=== PATIENT | female | born 1970 | race Caucasian/White ===

== ENCOUNTER → 2018-10-17 | Outpatient (CLI) | payer MEDICAID ==
[2018-10-17 11:42] LABS: Anisocytosis Slight; Basophils # (A) 0.1 k/uL (0-0.2); Basophils % (A) 1 %; Eosinophils # (A) 0.2 k/uL (0-0.7); Eosinophils % (A) 2 %; HCT 34.9 % (34.0-46.0); HGB 10.4 gm/dL (11.4-16.0); Hypochromasia Marked; Lymphocytes # (A) 1.7 k/uL (1.0-4.8); Lymphocytes % (A) 19 %; MCHC 29.8 g/dL (31.0-37.0); MCV 70.5 fL (80.0-100.0); Mean Platelet Volume 7.8; Microcytosis Marked; Monocytes # (A) 0.4 k/uL (0-1.0); Monocytes % (A) 4 %; Neutrophils # (A) 6.2 k/uL (1.3-7.7); Neutrophils % (A) 72 %; Platelet Count 369 k/uL (150-450); RBC 4.96 m/uL (3.80-5.40); RDW 17.2 % (11.5-15.5); WBC 8.7 k/uL (3.8-10.6)
--- NOTE | 2018-10-17 11:43 | XR ---
Right hip HISTORY: Right hip pain, trauma 3 days prior 2 views of the right hip Mild osteoarthritic changes present, there is joint space loss and mild marginal spurring. Alignment and bone mineralization are maintained. IMPRESSION: No fracture or dislocation.
[2018-10-17 13:25] LABS: ALT 24 U/L (9-52); AST 20 U/L (14-36); Albumin 4.1 g/dL (3.5-5.0); Alkaline Phosphatase 85 U/L (38-126); Anion Gap 7 mmol/L; Blood Urea Nitrogen 12 mg/dL (7-17); Calcium 9.8 mg/dL (8.4-10.2); Carbon Dioxide 30 mmol/L (22-30); Chloride 104 mmol/L (98-107); Cholesterol 115 mg/dL (<200); Glucose 95 mg/dL (74-99); HDL Cholesterol 44 mg/dL (40-60); LDL Cholesterol,Calculated 52 mg/dL (0-99); Magnesium 2.1 mg/dL (1.6-2.3); Potassium 4.1 mmol/L (3.5-5.1); Sodium 141 mmol/L (137-145); Total Bilirubin 0.4 mg/dL (0.2-1.3); Triglycerides 97 mg/dL (<150)
[2018-10-17 16:36] LABS: Vitamin D 25 Hydroxy 22.6 ng/mL (30.0-100.0)
[2018-10-17 17:00] LABS: Folate, Serum >24.0 ng/mL
[2018-10-18 13:57] LABS: Vitamin C 12 mg/L (2-19)
[2018-10-19 08:02] LABS: Vit B1(Thiamine) 59 ug/L (38-122)
== END | disposition home or self-care (01) ==
LOC: RADXRMAIN 10:40
PROVIDERS: ATTEND Family Medicine
DX: M25.551 Pain in right hip (principal); E66.8 Other obesity; K90.9 Intestinal malabsorption, unspecified; E03.8 Other specified hypothyroidism
CPT/HCPCS: 36415; 73502; 80053; 80061; 82180; 82306; 82607; 82728; 82746; 83735; 84425; 84439; 84443; 84446; 84590; 85025

== ENCOUNTER 2018-11-21 06:51 | Day surgery (SDC) | payer MEDICAID ==
[2018-11-16 10:13] VITALS: BMI 42.0
[~2018-11-21 06:51] MED LIST: LACTATED RINGERS 1,000 ML IV SCH; LIDOCAINE 1% 20 ML VIAL (10MG/ML) FOR IV START INTRADERMA PRN
[2018-11-21 07:17] VITALS: TEMP 98.3
[2018-11-21] MEDS ORDERED: PROPOFOL 10 MG/ML 20 ML VIAL IV ONE (07:31)
--- NOTE | 2018-11-21 07:40 | P.GSHP ---
History of Present Illness H&P Date: 11/21/18 CHIEF COMPLAINT: Colon screen HISTORY OF PRESENT ILLNESS: The patient is a 47-year-old female who presents for colon screen. Lower endoscopy was offered for further evaluation and management. PAST MEDICAL HISTORY: Please see list. PAST SURGICAL HISTORY: Please see list. MEDICATIONS: Please see list. ALLERGIES: Please see list. SOCIAL HISTORY: No illicit drug use FAMILY HISTORY: No reports of Crohn disease or ulcerative colitis. REVIEW OF ORGAN SYSTEMS: CONSTITUTIONAL: No reports of fevers or chills. PHYSICAL EXAM: VITAL SIGNS: Stable GENERAL: Well-developed pleasant in no acute distress. HEENT: No scleral icterus. Extraocular movements grossly intact. Moist buccal mucosa. NECK: Supple without lymphadenopathy. CHEST: Unlabored respirations. Equal bilateral excursions. CARDIOVASCULAR: Regular rate and rhythm. Distal 2+ pulses. ABDOMEN: Soft, nontender, nondistended. MUSCULOSKELETAL: No clubbing, cyanosis, or edema. ASSESSMENT: 1. Colon screen. PLAN: 1. Recommend proceeding with a lower endoscopy Past Medical History Past Medical History: Sleep Apnea/CPAP/BIPAP, Thyroid Disorder Additional Past Medical History / Comment(s): used to use CPAP-not needed since lost >100#, anemia History of Any Multi-Drug Resistant Organisms: None Reported Past Surgical History: Adenoidectomy, Bariatric Surgery, Cholecystectomy, Tonsillectomy Additional Past Surgical History / Comment(s): rouxen y gastric bypass, D & C's Past Anesthesia/Blood Transfusion Reactions: No Reported Reaction Smoking Status: Never smoker - Past Family History Father Family Medical History: Cancer Brother(s) Family Medical History: Cancer Additional Family Medical History / Comment(s): colorectal Medications and Allergies Home Medications Medication Instructions Recorded Confirmed Type Ferrous Sulfate [Feosol] 325 mg PO DAILY 11/16/18 11/21/18 History Levothyroxine Sodium [Synthroid] 50 mcg PO DAILY 11/16/18 11/21/18 History Medroxyprogesterone Acetate 5 mg PO Q90D 11/16/18 11/21/18 History [Provera] Multivitamins, Thera [Multivitamin 1 tab PO DAILY 11/16/18 11/21/18 History (formulary)] Allergies Allergy/AdvReac Type Severity Reaction Status Date / Time No Known Allergies Allergy Verified 11/21/18 07:10 Surgical - Exam Vital Signs Temp Pulse Resp BP Pulse Ox 98.3 F 68 17 143/75 98 11/21/18 07:14 11/21/18 07:14 11/21/18 07:14 11/21/18 07:14 11/21/18 07:14
--- NOTE | 2018-11-21 07:55 | P.PCN ---
Date of Procedure: 11/21/18 Description of Procedure: PREOPERATIVE DIAGNOSIS: Anemia Family history colon cancer Colonoscopy screening, initial POSTOPERATIVE DIAGNOSIS: Anemia Family history colon cancer Colonoscopy screening, initial Diverticulosis, scattered. Colitis with recent bleed at cecum OPERATION: Colonoscopy to the ileocecal valve and appendiceal orifice. Colonoscopy with cold forceps biopsy cecum SURGEON: Cheryl Wu MD. ANESTHESIA: MAC. INDICATIONS: The patient is a 47-year-old female who presents for colonoscopy screening. She has family history of colon cancer in her brother diagnosed at age 42. Separately she presents with anemia. Benefits and risks were described and informed consent was obtained. DESCRIPTION OF PROCEDURE: The patient had undergone Gatorade, MiraLAX and Dulcolax prep. She had been brought into the operating room and laid in the left lateral decubitus position. After adequate intravenous sedation, the rectum was examined with 2% lidocaine jelly. No external hemorrhoids were encountered. The rectal tone was within normal limits. No lesions were palpated in the rectal vault. An Olympus colonoscope was advanced until the ileocecal valve and appendiceal orifice were clearly viewed. The prep was fair. The scope was removed with visualization of each mucosal fold. Scattered diverticulosis was encountered. No colonic polyps were found. Focal colitis with recent bleed of the cecum was identified with cold biopsy forceps obtained. Retroflexion of the scope demonstrated grade 1 internal hemorrhoids without active bleeding or inflammation. The colon was desufflated. The patient had tolerated the procedure well. Withdrawal time was over 6 minutes. FINDINGS: Aronchick preparation quality scale 2 (1-5) Internal hemorrhoids, grade 1 No external prolapsed hemorrhoids. No arteriovenous malformations. No adenomatous polyps. Scattered diverticulosis was encountered. Focal colitis with recent bleed of the cecum was identified with cold biopsy forceps obtained. RECOMMENDATIONS: Lower endoscopy in 5 years, 2023 for high risk family history Plan - Discharge Summary Discharge Rx Participant: Yes New Discharge Prescriptions: No Action Multivitamins, Thera [Multivitamin (formulary)] 1 tab PO DAILY Levothyroxine Sodium [Synthroid] 50 mcg PO DAILY Ferrous Sulfate [Feosol] 325 mg PO DAILY Medroxyprogesterone Acetate [Provera] 5 mg PO Q90D Discharge Medication List Ferrous Sulfate [Feosol] 325 mg PO DAILY 11/16/18 [History] Levothyroxine Sodium [Synthroid] 50 mcg PO DAILY 11/16/18 [History] Medroxyprogesterone Acetate [Provera] 5 mg PO Q90D 11/16/18 [History] Multivitamins, Thera [Multivitamin (formulary)] 1 tab PO DAILY 11/16/18 [History] Follow up Appointment(s)/Referral(s): Cheryl Wu MD [STAFF PHYSICIAN] - 11/27/18 Patient Instructions/Handouts: Ulcerative Colitis (DC), Diverticulosis Diet (GEN), Diverticulosis (DC) Activity/Diet/Wound Care/Special Instructions: Repeat colonoscopy in 5 years, 2023 Discharge Disposition: HOME SELF-CARE
[2018-11-21 08:16] VITALS: BP 122/79; PULSE 70; RESP 18
== END 2018-11-21 08:37 | disposition home or self-care (01) ==
LOC: ORWHC2ENDO 06:51
PROVIDERS: ATTEND Surgery Plastic and Reconstructive Surgery
DX: K52.9 Noninfective gastroenteritis and colitis, unspecified (principal); K92.2 Gastrointestinal hemorrhage, unspecified; K57.30 Diverticulosis of large intestine without perforation or abscess without bleeding; K64.0 First degree hemorrhoids; Z80.0 Family history of malignant neoplasm of digestive organs; E07.9 Disorder of thyroid, unspecified; G47.30 Sleep apnea, unspecified; Z98.84 Bariatric surgery status; Z79.890 Hormone replacement therapy; Z79.3 Long term (current) use of hormonal contraceptives
CPT/HCPCS: 81025; 88305; 45380; J2704

== ENCOUNTER 2018-11-22 10:23 | Emergency (ER) | payer MEDICAID ==
[2018-11-22 10:33] VITALS: RESP 18; TEMP 99.3
[2018-11-22] MEDS ORDERED: SODIUM CHLORIDE 0.9% 1,000 ML IV ONE (10:54)
[2018-11-22] MEDS ORDERED: MORPHINE SULFATE 4 MG/ML SYRINGE IVP STA (10:54)
[2018-11-22] MEDS ORDERED: SODIUM CHLORIDE 0.9% 1,000 ML IV SCH (11:00)
--- NOTE | 2018-11-22 11:00 | ED ---
Abdominal Pain HPI - General Chief Complaint: Abdominal Pain Stated Complaint: abdominal & right side pain/nausea Time Seen by Provider: 11/22/18 10:36 Source: patient, RN notes reviewed, old records reviewed Mode of arrival: ambulatory Limitations: no limitations - History of Present Illness Initial Comments: Patient is a 47-year-old female presents emergency department today for evaluation with complaints of right-sided abdominal pain. Patient reports symptoms started approximately 8 hours after having colonoscopy. Patient reports she had a colonoscopy performed yesterday morning at 7:30 AM. Patient has called her doctor told her to come in for evaluation. She was here yesterday afternoon but left due to the long wait time. Patient reports that she has pain reading from the right upper quadrant around to her back. Previous surgical history includes gastric bypass and cholecystectomy. She reports she was passing gas after the procedure. She reports she's had some nausea but no specific vomiting. - Related Data Home Medications Medication Instructions Recorded Confirmed Ferrous Sulfate [Feosol] 325 mg PO DAILY 11/16/18 11/21/18 Levothyroxine Sodium [Synthroid] 50 mcg PO DAILY 11/16/18 11/21/18 Medroxyprogesterone Acetate 5 mg PO Q90D 11/16/18 11/21/18 [Provera] Multivitamins, Thera [Multivitamin 1 tab PO DAILY 11/16/18 11/21/18 (formulary)] Previous Rx's Medication Instructions Recorded Cephalexin [Keflex] 500 mg PO Q8HR #21 cap 11/22/18 HYDROcodone/APAP 5-325MG [[place] 1 tab PO Q6HR PRN #10 tab 11/22/18 5-325] Ondansetron Odt [Zofran Odt] 4 mg PO Q8HR PRN #12 tab 11/22/18 Tamsulosin [Flomax] 0.4 mg PO DAILY #7 cap 11/22/18 Allergies Allergy/AdvReac Type Severity Reaction Status Date / Time No Known Allergies Allergy Verified 11/21/18 18:41 Review of Systems ROS Statement: Those systems with pertinent positive or pertinent negative responses have been documented in the HPI. ROS Other: All systems not noted in ROS Statement are negative. Past Medical History Past Medical History: Sleep Apnea/CPAP/BIPAP, Thyroid Disorder Additional Past Medical History / Comment(s): used to use CPAP-not needed since lost >100#, anemia History of Any Multi-Drug Resistant Organisms: None Reported Past Surgical History: Adenoidectomy, Bariatric Surgery, Cholecystectomy, Tonsillectomy Additional Past Surgical History / Comment(s): rouxen y gastric bypass, D & C's, Colonoscopy Past Anesthesia/Blood Transfusion Reactions: No Reported Reaction Smoking Status: Never smoker Past Alcohol Use History: None Reported Past Drug Use History: None Reported - Past Family History Father Family Medical History: Cancer Brother(s) Family Medical History: Cancer Additional Family Medical History / Comment(s): colorectal General Exam - General Exam Comments Initial Comments: 47-year-old female. Alert and oriented. No significant distress. Limitations: no limitations General appearance: alert, in no apparent distress Head exam: Present: atraumatic, normocephalic, normal inspection Eye exam: Present: normal appearance, PERRL, EOMI. Absent: scleral icterus, conjunctival injection, periorbital swelling ENT exam: Present: normal exam, mucous membranes moist Neck exam: Present: normal inspection. Absent: tenderness, meningismus, lymphadenopathy Respiratory exam: Present: normal lung sounds bilaterally. Absent: respiratory distress, wheezes, rales, rhonchi, stridor Cardiovascular Exam: Present: regular rate, normal rhythm, normal heart sounds. Absent: systolic murmur, diastolic murmur, rubs, gallop, clicks GI/Abdominal exam: Present: soft, tenderness (Minimal right upper quadrant tenderness. No guarding.), normal bowel sounds. Absent: distended, guarding, rebound, rigid Extremities exam: Present: normal inspection, full ROM, normal capillary refill. Absent: tenderness, pedal edema, joint swelling, calf tenderness Back exam: Present: normal inspection Neurological exam: Present: alert, oriented X3, CN II-XII intact Psychiatric exam: Present: normal affect, normal mood Skin exam: Present: warm, dry, intact, normal color. Absent: rash Course Vital Signs 11/22/18 10:28 Temperature 99.3 F Pulse Rate 70 Respiratory 18 Rate Blood Pressure 147/72 O2 Sat by Pulse 100 Oximetry Medical Decision Making - Medical Decision Making Patient's a 47-year-old female presents weren't symptoms today for evaluation for complaints of right-sided flank pain. Patient thought that some symptoms started after having a colonoscopy yesterday. It is totally soft, some minimal right upper quadrant tenderness. She his right back pain. Blood work was reviewed. Urinalysis shows mild white blood cells,hematuria. Due to increased cough. His computed tomography scan. Patient is a 6 mm distal ureteral stone. No hydronephrosis noted. I discussed Patient should likely pass this, given referral for urology. She did have some minimal white blood cells in her urine, get Patient is given Rocephin and will discharge Patient with prescription for Keflex. Discharged with Toradol full next and pain medicine. All questions answered. - Lab Data Result diagrams: 11/22/18 11:05 11/22/18 11:05 Lab Results 11/22/18 11/22/18 11/22/18 Range/Units 11:05 11:05 11:05 WBC 12.2 H (3.8-10.6) k/uL RBC 5.32 (3.80-5.40) m/uL Hgb 10.9 L (11.4-16.0) gm/dL Hct 37.6 (34.0-46.0) % MCV 70.7 L (80.0-100.0) fL MCH 20.6 L (25.0-35.0) pg MCHC 29.1 L (31.0-37.0) g/dL RDW 16.9 H (11.5-15.5) % Plt Count 374 (150-450) k/uL Neutrophils % 80 % Lymphocytes % 13 % Monocytes % 5 % Eosinophils % 1 % Basophils % 1 % Neutrophils # 9.8 H (1.3-7.7) k/uL Lymphocytes # 1.6 (1.0-4.8) k/uL Monocytes # 0.6 (0-1.0) k/uL Eosinophils # 0.1 (0-0.7) k/uL Basophils # 0.1 (0-0.2) k/uL Hypochromasia Marked Anisocytosis Slight Microcytosis Moderate PT 10.1 (9.0-12.0) sec INR 0.9 (<1.2) APTT 23.8 (22.0-30.0) sec Sodium 142 (137-145) mmol/L Potassium 3.8 (3.5-5.1) mmol/L Chloride 104 (98-107) mmol/L Carbon Dioxide 29 (22-30) mmol/L Anion Gap 9 mmol/L BUN 10 (7-17) mg/dL Creatinine 0.98 (0.52-1.04) mg/dL Est GFR (CKD-EPI)AfAm 81 (>60 ml/min/1.73 sqM) Est GFR (CKD-EPI)NonAf 70 (>60 ml/min/1.73 sqM) Glucose 104 H (74-99) mg/dL Calcium 9.6 (8.4-10.2) mg/dL Total Bilirubin 0.5 (0.2-1.3) mg/dL AST 28 (14-36) U/L ALT 26 (9-52) U/L Alkaline Phosphatase 81 (38-126) U/L Total Protein 7.2 (6.3-8.2) g/dL Albumin 4.4 (3.5-5.0) g/dL Amylase 52 (30-110) U/L Lipase 96 (23-300) U/L Urine Color Urine Appearance (Clear) Urine pH (5.0-8.0) Ur Specific [place] (1.001-1.035) Urine Protein (Negative) Urine Glucose (UA) (Negative) Urine Ketones (Negative) Urine Blood (Negative) Urine Nitrite (Negative) Urine Bilirubin (Negative) Urine Urobilinogen (<2.0) mg/dL Ur Leukocyte Esterase (Negative) Urine RBC (0-5) /hpf Urine WBC (0-5) /hpf Ur Squamous Epith Cells (0-4) /hpf Urine Mucus (None) /hpf 11/22/18 Range/Units 11:05 WBC (3.8-10.6) k/uL RBC (3.80-5.40) m/uL Hgb (11.4-16.0) gm/dL Hct (34.0-46.0) % MCV (80.0-100.0) fL MCH (25.0-35.0) pg MCHC (31.0-37.0) g/dL RDW (11.5-15.5) % Plt Count (150-450) k/uL Neutrophils % % Lymphocytes % % Monocytes % % Eosinophils % % Basophils % % Neutrophils # (1.3-7.7) k/uL Lymphocytes # (1.0-4.8) k/uL Monocytes # (0-1.0) k/uL Eosinophils # (0-0.7) k/uL Basophils # (0-0.2) k/uL Hypochromasia Anisocytosis Microcytosis PT (9.0-12.0) sec INR (<1.2) APTT (22.0-30.0) sec Sodium (137-145) mmol/L Potassium (3.5-5.1) mmol/L Chloride (98-107) mmol/L Carbon Dioxide (22-30) mmol/L Anion Gap mmol/L BUN (7-17) mg/dL Creatinine (0.52-1.04) mg/dL Est GFR (CKD-EPI)AfAm (>60 ml/min/1.73 sqM) Est GFR (CKD-EPI)NonAf (>60 ml/min/1.73 sqM) Glucose (74-99) mg/dL Calcium (8.4-10.2) mg/dL Total Bilirubin (0.2-1.3) mg/dL AST (14-36) U/L ALT (9-52) U/L Alkaline Phosphatase (38-126) U/L Total Protein (6.3-8.2) g/dL Albumin (3.5-5.0) g/dL Amylase (30-110) U/L Lipase (23-300) U/L Urine Color Yellow Urine Appearance Clear (Clear) Urine pH 5.5 (5.0-8.0) Ur Specific [place] 1.033 (1.001-1.035) Urine Protein Trace H (Negative) Urine Glucose (UA) Negative (Negative) Urine Ketones Negative (Negative) Urine Blood Negative (Negative) Urine Nitrite Negative (Negative) Urine Bilirubin Negative (Negative) Urine Urobilinogen <2.0 (<2.0) mg/dL Ur Leukocyte Esterase Trace H (Negative) Urine RBC 3 (0-5) /hpf Urine WBC 8 H (0-5) /hpf Ur Squamous Epith Cells 1 (0-4) /hpf Urine Mucus Occasional H (None) /hpf Disposition Clinical Impression: Ureteral stone Disposition: HOME SELF-CARE Condition: Good Instructions (If sedation given, give patient instructions): Ureteral Stones (ED) Additional Instructions: Patient has follow-up with urology. Take medications as prescribed. Patient and advised to take Motrin and Tylenol as well as the prescribed pain medicine. Return to the emergency department if any alarming signs or symptoms occur. Prescriptions: Tamsulosin [Flomax] 0.4 mg PO DAILY #7 cap Cephalexin [Keflex] 500 mg PO Q8HR #21 cap HYDROcodone/APAP 5-325MG [[place] 5-325] 1 tab PO Q6HR PRN #10 tab PRN Reason: Pain Ondansetron Odt [Zofran Odt] 4 mg PO Q8HR PRN #12 tab PRN Reason: Nausea Is patient prescribed a controlled substance at d/c from ED?: Yes If prescribed controlled substance>3 days was MAPS reviewed?: Prescribed <3 Days If opioid is for acute pain is fill amount 7 days or less?: Yes If Rx opioid, was Start Talking consent form obtained?: Yes Referrals: Gio Cox DO [Primary Care Provider] - 1-2 days Esvin Bright MD [STAFF PHYSICIAN] - 1-2 days Time of Disposition: 13:46
[2018-11-22 11:26] LABS: Anisocytosis Slight; Appearance,Urine Clear (Clear); Basophils # (A) 0.1 k/uL (0-0.2); Basophils % (A) 1 %; Bilirubin,Urine Negative (Negative); Blood,Urine Negative (Negative); Color,Urine Yellow; Eosinophils # (A) 0.1 k/uL (0-0.7); Eosinophils % (A) 1 %; Glucose,Urine (UA) Negative (Negative); HCT 37.6 % (34.0-46.0); HGB 10.9 gm/dL (11.4-16.0); Hypochromasia Marked; Ketones,Urine Negative (Negative); Leukocyte Esterase,Urine Trace (Negative); Lymphocytes # (A) 1.6 k/uL (1.0-4.8); Lymphocytes % (A) 13 %; MCH 20.6 pg (25.0-35.0); MCHC 29.1 g/dL (31.0-37.0); MCV 70.7 fL (80.0-100.0); Mean Platelet Volume 7.8; Microcytosis Moderate; Monocytes # (A) 0.6 k/uL (0-1.0); Monocytes % (A) 5 %; Mucus,Urine Occasional /hpf; Neutrophils # (A) 9.8 k/uL (1.3-7.7); Neutrophils % (A) 80 %; Nitrite,Urine Negative (Negative); PH, Urine 5.5 (5.0-8.0); Platelet Count 374 k/uL (150-450); Protein,Urine Trace (Negative); RBC 5.32 m/uL (3.80-5.40); RBC,Urine 3 /hpf (0-5); RDW 16.9 % (11.5-15.5); Specific Gravity,Urine 1.033 (1.001-1.035); Squamous Epithelial Cell,Urine 1 /hpf (0-4); Urobilinogen,Urine <2.0 mg/dL (<2.0); WBC 12.2 k/uL (3.8-10.6); WBC,Urine 8 /hpf (0-5)
[2018-11-22 11:32] LABS: INR 0.9 (<1.2); Prothrombin Time 10.1 sec (9.0-12.0)
[2018-11-22 11:33] LABS: Partial Thromboplastin Time 23.8 sec (22.0-30.0)
[2018-11-22 11:42] LABS: Albumin 4.4 g/dL (3.5-5.0); Calcium 9.6 mg/dL (8.4-10.2); Potassium 3.8 mmol/L (3.5-5.1); Total Bilirubin 0.5 mg/dL (0.2-1.3); Total Protein 7.2 g/dL (6.3-8.2)
--- NOTE | 2018-11-22 12:46 | CT ---
EXAMINATION TYPE: CT abdomen pelvis w con DATE OF EXAM: 11/22/2018 COMPARISON: None INDICATION: Right sided abdominal pain today after colonoscopy yesterday. DLP: 1342.9 mGycm, Automated exposure control for dose reduction was used. CONTRAST: 100 mL of Isovue 300. Study performed without Oral Contrast TECHNIQUE: Axial images were obtained from above the diaphragm to the pubic rami in the axial plane a t 5 mm thick sections. Reconstructed images are reviewed on the computer in the coronal plane. FINDINGS: Limited CT sections are obtained the lung bases. The lung bases are clear. CT ABDOMEN: Liver: Normal Spleen: Normal Pancreas: Normal Adrenal glands: The adrenal glands are normal. Gallbladder: Normal Kidneys: No masses are evident. Moderate right hydronephrosis present. Mild right hydroureter is pres ent. There is a calcification within the pelvic inlet measuring 0.6 cm. No renal cysts are present. Delayed images were obtained through the kidneys, which remain unremarkable. Aorta: Vascular calcification is within the aorta. Inferior vena cava: Normal. CT PELVIS: Loops of bowel within the abdomen and pelvis are normal. Study is performed without oral contrast limiting bowel evaluation. Appendix: Normal as visualized. Urinary bladder: Normal. Genitourinary structures: Uterus is normal. Adnexal regions are clear. Osseous structures: No suspicious lytic or sclerotic lesions. IMPRESSIONS: 1. 0.6 cm right pelvic ureter calcification with moderate right hydronephrosis and mild right hydrou reter.
[2018-11-22] MEDS ORDERED: HYDROcodone/APAP 10-325MG 1 EACH TAB PO ONE (13:26)
[2018-11-22 14:21] VITALS: BP 147/79; PULSE 71
== END 2018-11-22 14:36 | disposition home or self-care (01) ==
LOC: EC 10:23
DX: N20.1 Calculus of ureter (principal); E07.9 Disorder of thyroid, unspecified; Z79.890 Hormone replacement therapy; Z79.899 Other long term (current) drug therapy; Z90.49 Acquired absence of other specified parts of digestive tract
CPT/HCPCS: 36415; 80053; 82150; 83690; 85025; 85610; 85730; 81001; 87086; 74177; 99285; 96365; 96375; 96361; J2270; J0696; Q9967

== ENCOUNTER 2018-11-25 04:42 | Observation (INO) | payer MEDICAID ==
[2018-11-25] MEDS ORDERED: ONDANSETRON 4 MG/2 ML VIAL IVP STA (05:08)
[2018-11-25] MEDS ORDERED: HYDROmorphone 0.5 MG/0.5 ML SYRINGE IVP STA (05:08)
[2018-11-25] MEDS ORDERED: KETOROLAC 30 MG/ML 1 ML VIAL IVP STA (05:17)
[2018-11-25 05:38] LABS: African American GFR (CKD) >90 (>60 ml/min/1.73 sqM); Anion Gap 10 mmol/L; Blood Urea Nitrogen 11 mg/dL (7-17); Calcium 9.5 mg/dL (8.4-10.2); Carbon Dioxide 25 mmol/L (22-30); Chloride 105 mmol/L (98-107); Glucose 107 mg/dL (74-99); Potassium 3.8 mmol/L (3.5-5.1); Sodium 140 mmol/L (137-145)
--- NOTE | 2018-11-25 05:51 | XR ---
EXAM: XR Abdomen, 1 View CLINICAL HISTORY: Right-sided flank pain TECHNIQUE: Frontal supine view of the abdomen/pelvis. COMPARISON: CT 11/22/2018 FINDINGS: Gastrointestinal tract: Unremarkable. No dilation. Organs: Cholecystectomy clips are noted in the right upper quadrant. Bones/joints: The calcification noted in the distal right ureter by CT examination is presumed overlying the mid right iliac wing, similar to previous CT exam. IMPRESSION: The calcification noted in the distal right ureter by CT examination is presumed overlying the mid right iliac wing, similar to previous CT exam.
[2018-11-25 06:01] LABS: Anisocytosis Slight; Basophils # (A) 0.1 k/uL (0-0.2); Basophils % (A) 1 %; Eosinophils # (A) 0.1 k/uL (0-0.7); Eosinophils % (A) 1 %; HCT 34.8 % (34.0-46.0); HGB 10.1 gm/dL (11.4-16.0); Hypochromasia Marked; Lymphocytes # (A) 1.9 k/uL (1.0-4.8); Lymphocytes % (A) 17 %; MCH 20.6 pg (25.0-35.0); MCHC 28.9 g/dL (31.0-37.0); MCV 71.1 fL (80.0-100.0); Mean Platelet Volume 7.2; Microcytosis Moderate; Monocytes # (A) 0.5 k/uL (0-1.0); Monocytes % (A) 5 %; Neutrophils # (A) 8.5 k/uL (1.3-7.7); Neutrophils % (A) 75 %; Platelet Count 343 k/uL (150-450); RDW 17.1 % (11.5-15.5); WBC 11.3 k/uL (3.8-10.6)
[2018-11-25] MEDS ORDERED: NALOXONE 0.4 MG/ML 1 ML VIAL IV PRN (06:59)
[2018-11-25] MEDS ORDERED: ONDANSETRON 4 MG/2 ML VIAL IVP PRN (06:59)
[2018-11-25] MEDS ORDERED: HYDROcodone/APAP 5-325MG 1 EACH TAB PO PRN (07:04)
--- NOTE | 2018-11-25 07:08 | ED ---
Abdominal Pain HPI - General Chief Complaint: Abdominal Pain Stated Complaint: Revisit Kidney Stone Time Seen by Provider: 11/25/18 04:58 Source: patient Mode of arrival: wheelchair Limitations: no limitations - History of Present Illness Initial Comments: This patient is a 47-year-old woman who presents with complaint of intractable right flank pain. She states that she started having flank pain late on the . She was seen here, she was diagnosed with ureterolithiasis on 11/22. This was confirmed by CT. The patient states that she was discharged with prescription for antibiotics, Flomax, and [place]. She states that she is taking any other medicines but could not tolerate the [place] because it upset her stomach. She then followed up with Dr. Vandana mar on Monday. She states that the pain about 5 out of 10. He told her to continue taking the medications and to return to emergency room pain was worse. She states that tonight the pain became more severe and is a 10 out of 10. He is also having some nausea and vomiting. MD Complaint: flank pain Onset/Timin -: days(s) Location: R flank Radiation: RLQ Migration to: no migration Severity: severe Quality: sharp Consistency: colicky Improves With: nothing Worsens With: nothing Associated Symptoms: nausea, vomiting - Related Data Home Medications Medication Instructions Recorded Confirmed Ferrous Sulfate [Feosol] 325 mg PO DAILY 11/16/18 11/21/18 Levothyroxine Sodium [Synthroid] 50 mcg PO DAILY 11/16/18 11/21/18 Medroxyprogesterone Acetate 5 mg PO Q90D 11/16/18 11/21/18 [Provera] Multivitamins, Thera [Multivitamin 1 tab PO DAILY 11/16/18 11/21/18 (formulary)] Previous Rx's Medication Instructions Recorded Cephalexin [Keflex] 500 mg PO Q8HR #21 cap 11/22/18 Tamsulosin [Flomax] 0.4 mg PO DAILY #7 cap 11/22/18 Allergies Allergy/AdvReac Type Severity Reaction Status Date / Time No Known Allergies Allergy Verified 11/25/18 07:18 Review of Systems ROS Statement: Those systems with pertinent positive or pertinent negative responses have been documented in the HPI. ROS Other: All systems not noted in ROS Statement are negative. Constitutional: Denies: fever, chills Respiratory: Denies: cough, dyspnea Cardiovascular: Denies: chest pain, palpitations, edema, syncope Gastrointestinal: Reports: abdominal pain, nausea, vomiting. Denies: diarrhea, constipation, melena, hematochezia Genitourinary: Denies: dysuria, frequency, hematuria Musculoskeletal: Denies: back pain Skin: Denies: rash Neurological: Denies: headache, weakness, numbness Past Medical History Past Medical History: Sleep Apnea/CPAP/BIPAP, Thyroid Disorder Additional Past Medical History / Comment(s): used to use CPAP-not needed since lost >100#, anemia, kidney stones, History of Any Multi-Drug Resistant Organisms: None Reported Past Surgical History: Adenoidectomy, Bariatric Surgery, Cholecystectomy, Tonsillectomy Additional Past Surgical History / Comment(s): rouxen y gastric bypass, D & C's, Colonoscopy, Past Anesthesia/Blood Transfusion Reactions: No Reported Reaction Smoking Status: Never smoker Past Alcohol Use History: None Reported Past Drug Use History: None Reported - Past Family History Father Family Medical History: Cancer Brother(s) Family Medical History: Cancer Additional Family Medical History / Comment(s): colorectal General Exam Limitations: no limitations General appearance: alert, in no apparent distress Head exam: Present: atraumatic, normocephalic Eye exam: Present: normal appearance. Absent: scleral icterus, conjunctival injection ENT exam: Present: normal oropharynx Neck exam: Present: normal inspection Respiratory exam: Present: normal lung sounds bilaterally. Absent: respiratory distress, wheezes, rales, rhonchi, stridor Cardiovascular Exam: Present: regular rate, normal rhythm, normal heart sounds. Absent: systolic murmur, diastolic murmur, rubs, gallop GI/Abdominal exam: Present: soft. Absent: distended, tenderness, guarding, rebound, rigid Extremities exam: Present: normal inspection, normal capillary refill. Absent: pedal edema, calf tenderness Back exam: Present: normal inspection, CVA tenderness (R). Absent: CVA tenderness (L) Neurological exam: Present: alert Skin exam: Present: warm, dry, intact, normal color. Absent: rash Course Vital Signs 11/25/18 11/25/18 04:50 06:26 Temperature 97.5 F L Pulse Rate 68 68 Respiratory 17 18 Rate Blood Pressure 158/83 131/76 O2 Sat by Pulse 100 97 Oximetry Medical Decision Making - Medical Decision Making Case discussed with Dr. Pierson who will admit patient for further symptomatic management. - Lab Data Result diagrams: 11/25/18 04:58 11/25/18 04:58 Lab Results 11/25/18 11/25/18 Range/Units 04:58 04:58 WBC 11.3 H (3.8-10.6) k/uL RBC 4.90 (3.80-5.40) m/uL Hgb 10.1 L (11.4-16.0) gm/dL Hct 34.8 (34.0-46.0) % MCV 71.1 L (80.0-100.0) fL MCH 20.6 L (25.0-35.0) pg MCHC 28.9 L (31.0-37.0) g/dL RDW 17.1 H (11.5-15.5) % Plt Count 343 (150-450) k/uL Neutrophils % 75 % Lymphocytes % 17 % Monocytes % 5 % Eosinophils % 1 % Basophils % 1 % Neutrophils # 8.5 H (1.3-7.7) k/uL Lymphocytes # 1.9 (1.0-4.8) k/uL Monocytes # 0.5 (0-1.0) k/uL Eosinophils # 0.1 (0-0.7) k/uL Basophils # 0.1 (0-0.2) k/uL Hypochromasia Marked Anisocytosis Slight Microcytosis Moderate Sodium 140 (137-145) mmol/L Potassium 3.8 (3.5-5.1) mmol/L Chloride 105 (98-107) mmol/L Carbon Dioxide 25 (22-30) mmol/L Anion Gap 10 mmol/L BUN 11 (7-17) mg/dL Creatinine 0.69 (0.52-1.04) mg/dL Est GFR (CKD-EPI)AfAm >90 (>60 ml/min/1.73 sqM) Est GFR (CKD-EPI)NonAf >90 (>60 ml/min/1.73 sqM) Glucose 107 H (74-99) mg/dL Calcium 9.5 (8.4-10.2) mg/dL Disposition Clinical Impression: Ureterolithiasis, Intractable pain Disposition: ADMITTED IP TO THIS HOSP Condition: Fair Referrals: Gio Cox DO [Primary Care Provider] - 1-2 days
[2018-11-25] MEDS: LEVOTHYROXINE 50 MCG TAB PO SCH (09:22)
[2018-11-25] MEDS: CEPHALEXIN 500 MG CAP PO SCH ×3 (09:22→22:47)
[2018-11-25] MEDS: TAMSULOSIN 0.4 MG CAP.ER.24H PO SCH (09:22)
[2018-11-25] MEDS: SODIUM CHLORIDE 0.9% 1,000 ML IV SCH ×2 (09:22→16:51)
[2018-11-25] MEDS: FAMOTIDINE 20 MG TAB PO SCH ×2 (09:22→19:41)
[2018-11-25] MEDS: KETOROLAC 30 MG/ML 1 ML VIAL IVP PRN ×3 (11:05→22:47)
[2018-11-25 11:39] LABS: Appearance,Urine Clear (Clear); Bilirubin,Urine Negative (Negative); Blood,Urine Moderate (Negative); Color,Urine Yellow; Glucose,Urine (UA) Negative (Negative); Ketones,Urine Negative (Negative); Leukocyte Esterase,Urine Small (Negative); Mucus,Urine Occasional /hpf; Nitrite,Urine Negative (Negative); PH, Urine 5.5 (5.0-8.0); Protein,Urine Trace (Negative); RBC,Urine 128 /hpf (0-5); Specific Gravity,Urine 1.019 (1.001-1.035); Squamous Epithelial Cell,Urine 1 /hpf (0-4); Urobilinogen,Urine <2.0 mg/dL (<2.0); WBC,Urine 7 /hpf (0-5)
--- NOTE | 2018-11-25 12:25 | P.GSHP ---
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 She was found to have a 5-6 mm midureteral stone. She was seen by in the office 2 days ago. Treatment options were outlined and she elected to try to pass this spontaneously. Last night she developed again severe colic and ended up in the emergency room. She was admitted this morning for pain control. This is her first stone. There is no history hematuria or previous stones. There is no family history of stones. She has had no fever or chills. There has been some nausea and vomiting. She is feeling better after IV pain medication. A KUB was obtained identifying the stone near the SI joint on the right side. - Constitutional Constitutional: Denies chills, Denies fever - EENT Eyes: denies blurred vision, denies pain Ears, nose, mouth and throat: Denies headache, Denies sore throat - Cardiovascular Cardiovascular: Denies chest pain, Denies shortness of breath - Respiratory Respiratory: Denies cough, Denies 7 - Gastrointestinal Gastrointestinal: Denies abdominal pain, Denies diarrhea, Denies nausea, Denies vomiting - Genitourinary (Female) Genitourinary: Denies dysuria, Denies hematuria - Genitourinary (Male) Genitourinary: Denies dysuria, Denies hematuria - Musculoskeletal Musculoskeletal: Denies myalgias - Integumentary Integumentary: Denies pruritus, Denies rash - Neurological Neurological: Denies numbness, Denies weakness - Psychiatric Psychiatric: Denies anxiety, Denies depression - Endocrine Endocrine: Denies fatigue, Denies weight change Past Medical History Past Medical History: Sleep Apnea/CPAP/BIPAP, Thyroid Disorder Additional Past Medical History / Comment(s): used to use CPAP-not needed since lost >100#, anemia, kidney stones, History of Any Multi-Drug Resistant Organisms: None Reported Past Surgical History: Adenoidectomy, Bariatric Surgery, Cholecystectomy, Tonsillectomy Additional Past Surgical History / Comment(s): rouxen y gastric bypass 2013. , D & C's, Colonoscopy10/2018, Past Anesthesia/Blood Transfusion Reactions: No Reported Reaction Smoking Status: Never smoker Past Alcohol Use History: None Reported Past Drug Use History: None Reported - Past Family History Father Family Medical History: Cancer Brother(s) Family Medical History: Cancer Additional Family Medical History / Comment(s): colorectal Medications and Allergies Home Medications Medication Instructions Recorded Confirmed Type Ferrous Sulfate [Feosol] 325 mg PO DAILY 11/16/18 11/25/18 History Levothyroxine Sodium [Synthroid] 50 mcg PO DAILY 11/16/18 11/25/18 History Medroxyprogesterone Acetate 5 mg PO Q90D 11/16/18 11/25/18 History [Provera] Multivitamins, Thera [Multivitamin 1 tab PO DAILY 11/16/18 11/25/18 History (formulary)] Cephalexin [Keflex] 500 mg PO Q8HR #21 cap 11/22/18 11/25/18 Rx Tamsulosin [Flomax] 0.4 mg PO DAILY #7 cap 11/22/18 11/25/18 Rx Allergies Allergy/AdvReac Type Severity Reaction Status Date / Time No Known Allergies Allergy Verified 11/25/18 09:24 Surgical - Exam Vital Signs Temp Pulse Resp BP Pulse Ox 97.5 F L 68 17 158/83 100 11/25/18 04:50 11/25/18 04:50 11/25/18 04:50 11/25/18 04:50 11/25/18 04:50 - General well developed, well nourished, no distress - Eyes PERRL - ENT no hearing loss - Neck no masses - Respiratory normal expansion, normal respiratory effort - Cardiovascular Rhythm: regular - Abdomen Abdomen: soft, non tender - Integumentary no rash, no growths - Neurologic normal coordination, normal sensation - Musculoskeletal normal posture - Psychiatric oriented to time, oriented to person, oriented to place, speech is normal, memory intact Results - Labs 11/25/18 04:58 11/25/18 04:58 Abnormal Lab Results - Last 24 Hours (Table) 11/25/18 11/25/18 11/25/18 Range/Units 04:58 04:58 11:09 WBC 11.3 H (3.8-10.6) k/uL Hgb 10.1 L (11.4-16.0) gm/dL MCV 71.1 L (80.0-100.0) fL MCH 20.6 L (25.0-35.0) pg MCHC 28.9 L (31.0-37.0) g/dL RDW 17.1 H (11.5-15.5) % Neutrophils # 8.5 H (1.3-7.7) k/uL Glucose 107 H (74-99) mg/dL Urine Protein Trace H (Negative) Urine Blood Moderate H (Negative) Ur Leukocyte Esterase Small H (Negative) Urine RBC 128 H (0-5) /hpf Urine WBC 7 H (0-5) /hpf Urine Mucus Occasional H (None) /hpf Diabetes panel 11/25/18 Range/Units 04:58 Sodium 140 (137-145) mmol/L Potassium 3.8 (3.5-5.1) mmol/L Chloride 105 (98-107) mmol/L Carbon Dioxide 25 (22-30) mmol/L BUN 11 (7-17) mg/dL Creatinine 0.69 (0.52-1.04) mg/dL Glucose 107 H (74-99) mg/dL Calcium 9.5 (8.4-10.2) mg/dL Calcium panel 11/25/18 Range/Units 04:58 Calcium 9.5 (8.4-10.2) mg/dL Pituitary panel 11/25/18 Range/Units 04:58 Sodium 140 (137-145) mmol/L Potassium 3.8 (3.5-5.1) mmol/L Chloride 105 (98-107) mmol/L Carbon Dioxide 25 (22-30) mmol/L BUN 11 (7-17) mg/dL Creatinine 0.69 (0.52-1.04) mg/dL Glucose 107 H (74-99) mg/dL Calcium 9.5 (8.4-10.2) mg/dL Adrenal panel 11/25/18 Range/Units 04:58 Sodium 140 (137-145) mmol/L Potassium 3.8 (3.5-5.1) mmol/L Chloride 105 (98-107) mmol/L Carbon Dioxide 25 (22-30) mmol/L BUN 11 (7-17) mg/dL Creatinine 0.69 (0.52-1.04) mg/dL Glucose 107 H (74-99) mg/dL Calcium 9.5 (8.4-10.2) mg/dL - Imaging Abdominal x-ray: report reviewed, image reviewed CT scan - abdomen: report reviewed, image reviewed CT scan - pelvis: report reviewed, image reviewed Assessment and Plan Assessment: Impression: Right ureteral calculus with colic. She morbid obesity status post gastric bypass with excellent weight loss. Recommendations: I outlined all the options from spontaneous passage to surgical removal of the stone. The 2 most frequently use options including shockwave lithotripsy and ureteroscopic manipulation have been outlined. He wishes to proceed with ureteroscopy and laser lithotripsy. This will be set up for tomorrow to be done by myself or . She will be made nothing by mouth after midnight.
[2018-11-26] MEDS: SODIUM CHLORIDE 0.9% 1,000 ML IV SCH ×2 (04:46→11:57)
[2018-11-26] MEDS: LEVOTHYROXINE 50 MCG TAB PO SCH (06:07)
[2018-11-26] MEDS: KETOROLAC 30 MG/ML 1 ML VIAL IVP PRN (06:07)
[2018-11-26] MEDS: TAMSULOSIN 0.4 MG CAP.ER.24H PO SCH (08:01)
[2018-11-26] MEDS: FAMOTIDINE 20 MG TAB PO SCH (08:01)
[2018-11-26] MEDS: CEPHALEXIN 500 MG CAP PO SCH ×2 (08:01→18:14)
[2018-11-26] MEDS ORDERED: FERROUS SULFATE 325 MG TAB PO SCH (09:00)
[2018-11-26] MEDS ORDERED: IV FLUID CONTINUATION 1,000 ML IV ONE (14:57)
[2018-11-26] MEDS ORDERED: ONDANSETRON 4 MG/2 ML VIAL IVP ONE (15:06)
[2018-11-26] MEDS ORDERED: DEXAMETHASONE SOD PHOSPHATE 10 MG/ML 1 ML VIAL IV ONE (15:07)
[2018-11-26] MEDS ORDERED: PROPOFOL 10 MG/ML 20 ML VIAL IV ONE (15:29)
[2018-11-26] MEDS ORDERED: MIDAZOLAM 2 MG/2 ML VIAL ONE (15:29)
[2018-11-26] MEDS ORDERED: fentaNYL (PF) 50 MCG/ML 2 ML AMP ONE (15:29)
[2018-11-26] MEDS ORDERED: LIDOCAINE 1% INJ 10MG/ML (20 ML MDV) ONE (15:29)
[2018-11-26] MEDS ORDERED: SUCCINYLCHOLINE CHLORIDE 100 MG/5 ML SYR IV ONE (15:29)
--- NOTE | 2018-11-26 17:03 | P.OP ---
Date of Procedure: 11/26/18 Preoperative Diagnosis: Right ureteral calculus Postoperative Diagnosis: Right ureteral calculus Procedure(s) Performed: Cystoscopy with right ureteroscopy, lithotripsy and placement of right double-J catheter Implants: 6-Indonesian by 24 cm double-J catheter Anesthesia: VELMA Surgeon: Junaid Olivo Estimated Blood Loss (ml): 0 Pathology: other (Right ureteral calculus fragments) Condition: stable Disposition: PACU Indications for Procedure: The patient is a 47-year-old female developed severe right flank pain secondary to a 5 mm calculus located near the mid sacrum last week. Patient has had intermittent severe pain which required admission to the hospital. Her calculus has not migrated based on a recent KUB. After reviewing treatment options the patient has elected to proceed with right ureteroscopy with lithotripsy. Description of Procedure: The patient was taken to the operating suite where adequate general anesthesia via orotracheal intubation was instituted. She was placed in the dorsal lithotomy position with her legs suspended from padded Sarmad stirrups. Pneumatic compression stockings were applied to the lower legs. The genitalia was prepped with Betadine solution and draped in sterile fashion. The 17-Indonesian cystoscope sheath with 30 lens was passed through the urethra and into the bladder. Both ureteral orifices were of normal location and configuration. The bladder was free of tumor, foreign body and diverticulum. Using fluoroscopic guidance a 0.035 straight Glidewire was advanced through the right ureteral orifice, beyond the calculus which was located at the mid sacral level and up into the proximal ureter. The cystoscope was withdrawn leaving the Glidewire in place. The distal ureter was dilated to 13-Indonesian using a 13-Indonesian ureteral reentry sheath and 11-Indonesian dilator. An attempt was made to pass the semirigid ureteroscope alongside the Glidewire and up to the calculus at this proved impossible due to the location of the calculus. The reentry sheath with obturator was reinserted and the obturator and Glidewire were withdrawn. The end of the reentry sheath was located distal to the sacrum. The flexible ureteroscope was advanced through the reentry sheath and the calculus was identified. It was broken down into multiple small fragments using the 350 fiber and the holmium laser at a setting of between 601,000 mJ and 6 cps. The calculus fragments were then removed from the ureter using a 1.9-Indonesian nitinol stone basket. All visible fragments were removed. There was a moderate amount of edema located where the calculus had become impacted in it was elected to place a double-J catheter. The Glidewire was readvanced through the reentry sheath and the reentry sheath was removed. The 22-Indonesian cystoscope sheath with 30 lens was passed over the Glidewire and into the bladder. A 6-Indonesian by 24 cm double-J catheter was then advanced over the Glidewire and positioned so the proximal end coiled in the region of the renal pelvis and the distal end coiled in the bladder bladder was drained and the cystoscope was withdrawn. The patient tolerated procedure well and left the operative room awake and in satisfactory condition. If she is comfortable she will be discharged later today. Her double-J catheter will be removed in 7-10 days.
[2018-11-26 17:15] VITALS: TEMP 97.7
[2018-11-26] MEDS ORDERED: HYDROmorphone 1 MG/ML 1 ML SYRINGE IVP ONE (17:21)
[2018-11-26 18:17] VITALS: RESP 18
[2018-11-26 19:12] VITALS: BP 134/79; PULSE 67
--- NOTE | 2018-11-27 08:52 | FL ---
EXAMINATION TYPE: FL urography retrograde DATE OF EXAM: 11/26/2018 COMPARISON: NONE HISTORY: Stent placement TECHNIQUE: Fluoroscopy. FINDINGS: Fluoroscopic guidance was provided during procedure performed a 5 seconds. IMPRESSION: As Above.
--- NOTE | 2018-11-30 08:24 | P.DS ---
Providers Date of admission: 11/25/18 06:59 Expected date of discharge: 11/26/18 Attending physician: Houston Pierson Primary care physician: Gio Cox [facility] Course: The patient is a 48 -year-old female who developed right flank pain on 11/21 from a 5 mm calculus in the right ureter in the mid sacral area with secondary hydronephrosis. She was initially managed as an outpatient and admitted on 11/25 when her pain increased in severity. She underwent cystoscopy with right ureteroscopy, lithotripsy and placement of a catheter on 11/26. She was more comfortable following the procedure and was discharged. Procedures: cystoscopywith right ureteroscopy, lithotripsy placement of right JJ catheter 11/26/2018 Patient Condition at Discharge: Good Plan - Discharge Summary Discharge Rx Participant: Yes New Discharge Prescriptions: No Action Multivitamins, Thera [Multivitamin (formulary)] 1 tab PO DAILY Levothyroxine Sodium [Synthroid] 50 mcg PO DAILY Ferrous Sulfate [Feosol] 325 mg PO DAILY Medroxyprogesterone Acetate [Provera] 5 mg PO Q90D Tamsulosin [Flomax] 0.4 mg PO DAILY #7 cap Cephalexin [Keflex] 500 mg PO Q8HR #21 cap Discharge Medication List Ferrous Sulfate [Feosol] 325 mg PO DAILY 11/16/18 [History] Levothyroxine Sodium [Synthroid] 50 mcg PO DAILY 11/16/18 [History] Medroxyprogesterone Acetate [Provera] 5 mg PO Q90D 11/16/18 [History] Multivitamins, Thera [Multivitamin (formulary)] 1 tab PO DAILY 11/16/18 [History] Cephalexin [Keflex] 500 mg PO Q8HR #21 cap 11/22/18 [Rx] Tamsulosin [Flomax] 0.4 mg PO DAILY #7 cap 11/22/18 [Rx] Follow up Appointment(s)/Referral(s): Junaid Fu MD [STAFF PHYSICIAN] - 1 Week Gio Cox DO [Primary Care Provider] - 1-2 days Patient Instructions/Handouts: *Surgery [facility] - (Urol) Extracorporeal Shockwave Lithotripsy (ESWL) Post-Op Instr Activity/Diet/Wound Care/Special Instructions: CALL FIRST THING IN THE AM TO MAKE YOUR FOLLOW UP WITH DR FU IN ONE WEEK. IF YOU HAVE ANY FEVER, CHILLS, SEVERE PAIN, VOMITING OR ANY CONCERNING SYMPTOMS PLEASE CALL DR FU OR RETURN TO THE ER. Discharge Disposition: HOME SELF-CARE
== END 2018-11-26 19:19 | disposition home or self-care (01) ==
LOC: EC 04:42 → 6PED 06:59
PROVIDERS: ADMIT Urology; ATTEND Urology
DX: N20.1 Calculus of ureter (principal); E66.01 Morbid (severe) obesity due to excess calories; Z68.41 Body mass index [BMI] 40.0-44.9, adult; G47.30 Sleep apnea, unspecified; E07.9 Disorder of thyroid, unspecified; D64.9 Anemia, unspecified; Z87.442 Personal history of urinary calculi; Z98.84 Bariatric surgery status; Z90.49 Acquired absence of other specified parts of digestive tract; Z79.2 Long term (current) use of antibiotics; Z79.890 Hormone replacement therapy; Z79.899 Other long term (current) drug therapy; Z80.0 Family history of malignant neoplasm of digestive organs
CPT/HCPCS: 52356; 96376; 96374; 96375; 99285; 36415; 81025 ×2; 80048; 85025; 81001; 82365; 74420; 74018; G0378 ×2; C2625; C1769; C1894; J2250; J1100; J2405 ×2; J2001; J3010; J1885 ×2; J1170; J0330; J2704

== ENCOUNTER → 2019-04-24 | Outpatient (CLI) | payer MEDICAID ==
[2019-04-24 13:46] VITALS: BP 167/102; PULSE 69; RESP 16; TEMP 98.1; BMI 40.8
--- NOTE | 2019-04-24 14:57 | P.HPBAR ---
Bariatric H&P - History & Physicial H&P Date: 04/24/19 History & Physicial: Visit/CC: Transfer of Care/Ry Patient initial contact: Initial weight: 155.582 kg Initial weight in pounds: 343.00 Height: 5 ft 2 in Initial BMI: 62.7 Last weight: Current weight: 101.151 kg Current weight in pounds: 223.00 Current BMI: 40.8 Wendell body weight (based on NIH guidelines): 49.895 kg Excess body weight loss: 51.5% The patient is a 48 year-old F who presents for Bariatric Assessment. HPI: She comes in for the first time as a transfer from [facility], 2013. Her highest of 343 pounds. Lowest 203 pounds. Current weight of 223 pounds. She comes in with gas bloat and weight re-gain following the of her 2 years ago. She complains of epigastric pain and gas bloat. She has completed. Her lower endoscopy was completed. She has recent gallstones. Her gallbladder is gone. Blood pressure is improved. Bariatric labs repeat EGD of the abdomen Vitamin A supplement Repeat labs Past Medical History Past Medical History: Sleep Apnea/CPAP/BIPAP, Thyroid Disorder Additional Past Medical History / Comment(s): used to use CPAP-not needed since lost >100#, anemia, kidney stones, History of Any Multi-Drug Resistant Organisms: None Reported Past Surgical History: Adenoidectomy, Bariatric Surgery, Cholecystectomy, Tonsillectomy Additional Past Surgical History / Comment(s): rouxen y gastric bypass 2013. , D & C's, Colonoscopy10/2018,. Kidney stone removal Past Anesthesia/Blood Transfusion Reactions: No Reported Reaction Smoking Status: Never smoker Past Alcohol Use History: None Reported Past Drug Use History: None Reported - Past Family History Father Family Medical History: Cancer Brother(s) Family Medical History: Cancer Additional Family Medical History / Comment(s): colorectal Surgical - Exam Vital Signs Temp Pulse Resp BP 98.1 F 69 16 167/102 04/24/19 13:42 04/24/19 13:42 04/24/19 13:42 04/24/19 13:42 Bariatric Checklist Checklist: Plan: Checklist: EGD: 1. Hiatal hernia: 2. H. Pylori: HgbA1c: Vitamin D: Smoking: Never smoker Primary care physician referral: rebecca Psychiatry clearance: Cardiology clearance: Sleep study: Diet journal: VTE risk score: VTE risk level: Rehab needs at discharge:
== END | disposition home or self-care (01) ==
LOC: BARWHC3 13:26
PROVIDERS: ATTEND Surgery Plastic and Reconstructive Surgery
DX: R10.13 Epigastric pain (principal); R14.0 Abdominal distension (gaseous); Z90.49 Acquired absence of other specified parts of digestive tract; Z98.84 Bariatric surgery status
CPT/HCPCS: 99211

== ENCOUNTER → 2019-04-29 | Outpatient (CLI) | payer MEDICAID ==
[2019-04-29 16:52] LABS: Anisocytosis Marked; HCT 41.9 % (34.0-46.0); HGB 12.6 gm/dL (11.4-16.0); Hypochromasia Marked; MCH 23.5 pg (25.0-35.0); MCV 78.6 fL (80.0-100.0); Mean Platelet Volume 6.7; Microcytosis Moderate; Platelet Count 315 k/uL (150-450); RBC 5.34 m/uL (3.80-5.40); WBC 8.4 k/uL (3.8-10.6)
[2019-04-29 16:56] LABS: Partial Thromboplastin Time 25.8 sec (22.0-30.0); Prothrombin Time 10.4 sec (9.0-12.0)
[2019-04-30 00:55] LABS: % Iron Saturation 15.89 (12.00-45.00); African American GFR (CKD) 120.4 (60.0-200.0); Albumin 4.5 g/dL (3.80-4.90); Albumin/Globulin Ratio 2.37 (1.60-3.17); Anion Gap 7.9 mmol/L (4.00-12.00); Calcium 9.5 mg/dL (8.7-10.3); Carbon Dioxide 28.1 mmol/L (21.6-31.8); Chol/HDL Ratio 2.47; Globulin 1.9 g/dL (1.6-3.3); Phosphorus 3.5 mg/dL (2.4-5.1); Potassium 4.1 mmol/L (3.5-5.5); Total Bilirubin 0.3 mg/dL (0.3-1.2); Total Protein 6.4 g/dL (6.2-8.2)
[2019-04-30 01:04] LABS: Ferritin 114.8 ng/mL (10.0-291.0)
[2019-04-30 01:21] LABS: Folate, Serum 13.5 ng/mL
[2019-04-30 02:43] LABS: Hemoglobin A1C 4.4 % (4.0-6.0)
[2019-04-30 12:10] LABS: Zinc, Serum 75 ug/dL (60-130)
[2019-05-01 09:38] LABS: Vit B1(Thiamine) 56 ug/L (38-122)
[2019-05-01 12:11] LABS: Vitamin A 33 ug/dL (38-106)
== END | disposition home or self-care (01) ==
LOC: LABWHC1 15:54
PROVIDERS: ATTEND Surgery Plastic and Reconstructive Surgery
DX: E21.1 Secondary hyperparathyroidism, not elsewhere classified (principal); D50.9 Iron deficiency anemia, unspecified; K90.9 Intestinal malabsorption, unspecified; E55.9 Vitamin D deficiency, unspecified; N19 Unspecified kidney failure; K50.90 Crohn's disease, unspecified, without complications
CPT/HCPCS: 36415; 80053; 80061; 82306; 82525; 82607; 82728; 82746; 83036; 83540; 83550; 83735; 83970; 84100; 84134; 84255; 84425; 84443; 84590; 84630; 85027; 85610; 85730

== ENCOUNTER 2019-05-13 14:13 | Day surgery (SDC) | payer MEDICAID ==
[2019-05-10 08:34] VITALS: BMI 41.1
--- NOTE | 2019-05-13 05:47 | P.GSHP ---
History of Present Illness H&P Date: 05/13/19 CHIEF COMPLAINT: GERD HISTORY OF PRESENT ILLNESS: The patient is a 48-year-old female who presents reports gastroesophageal reflux disease. Upper endoscopy was offered for further evaluation and management. PAST MEDICAL HISTORY: Please see list. PAST SURGICAL HISTORY: Please see list. MEDICATIONS: Please see list. ALLERGIES: Please see list. SOCIAL HISTORY: No illicit drug use FAMILY HISTORY: No reports of Crohn disease or ulcerative colitis. REVIEW OF ORGAN SYSTEMS: CONSTITUTIONAL: No reports of fevers or chills. GI: Denies any blood in stools or constipation. PHYSICAL EXAM: VITAL SIGNS: Stable GENERAL: Well-developed and pleasant in no acute distress. HEENT: No scleral icterus. Extraocular movements grossly intact. Moist buccal mucosa. NECK: Supple without lymphadenopathy. CHEST: Unlabored respirations. Equal bilateral excursions. CARDIOVASCULAR: Regular rate and rhythm. Distal 2+ pulses. ABDOMEN: Soft, nondistended. MUSCULOSKELETAL: No clubbing, cyanosis, or edema. ASSESSMENT: 1. Gastroesophageal reflux disease PLAN: 1. Recommend proceeding with an upper endoscopy Past Medical History Past Medical History: Sleep Apnea/CPAP/BIPAP, Thyroid Disorder Additional Past Medical History / Comment(s): used to use CPAP-not needed since lost >100#, anemia, kidney stones, History of Any Multi-Drug Resistant Organisms: None Reported Past Surgical History: Adenoidectomy, Bariatric Surgery, Cholecystectomy, Tonsillectomy Additional Past Surgical History / Comment(s): rouxen y gastric bypass 2013. , D & C's, Colonoscopy10/2018,. Kidney stone removal Past Anesthesia/Blood Transfusion Reactions: No Reported Reaction Smoking Status: Never smoker - Past Family History Father Family Medical History: Cancer Brother(s) Family Medical History: Cancer Additional Family Medical History / Comment(s): colorectal Medications and Allergies Home Medications Medication Instructions Recorded Confirmed Type Ferrous Sulfate [Feosol] 325 mg PO DAILY 11/16/18 05/10/19 History Levothyroxine Sodium [Synthroid] 50 mcg PO QAM 11/16/18 05/10/19 History Multivitamins, Thera [Multivitamin 1 tab PO DAILY 11/16/18 05/10/19 History (formulary)] Calcium Citrate 400 mg PO TID 05/02/19 05/10/19 History Ergocalciferol [Vitamin D2 50,000 unit PO WEEKLY 05/02/19 05/10/19 History (DRISDOL)] Vitamin A 10,000 unit PO DAILY 05/02/19 05/10/19 History Allergies Allergy/AdvReac Type Severity Reaction Status Date / Time No Known Allergies Allergy Verified 05/10/19 08:27
[2019-05-13 14:40] VITALS: TEMP 97.1
[2019-05-13] MEDS ORDERED: LIDOCAINE 1% INJ 10MG/ML (20 ML MDV) ONE (15:04)
[2019-05-13] MEDS ORDERED: PROPOFOL 10 MG/ML 20 ML VIAL IV ONE (15:04)
--- NOTE | 2019-05-13 15:20 | P.PCN ---
Date of Procedure: 05/13/19 Description of Procedure: PREOPERATIVE DIAGNOSIS: Dysphagia. s/p Loena-en-y gastric bypass. Nausea with vomiting. POSTOPERATIVE DIAGNOSIS: Dysphagia. s/p Leona-en-y gastric bypass. Nausea with vomiting. Morbid obesity. Gastrojejunal stricture with chronic ulcer without perforation OPERATION: Esophagogastrojejunoscopy with balloon dilatation from 12 to 18 mm. SURGEON: Cheryl Wu MD ANESTHESIA: MAC. INDICATIONS: The patient is a 48-year-old female who presents with a history of dysphagia, gastric bypass including new-onset nausea and vomiting. Benefits and risks of the procedure were described. Informed consent was obtained. DESCRIPTION: The patient was brought into the endoscopy suite and laid in the left lateral decubitus position. After a timeout was confirmed, the procedure was initiated. An Olympus gastroscope was passed along the posterior oropharynx down to the distal esophagus where the squamocolumnar junction was unremarkable. The gastric pouch was entered. A gastrojejunal stricture of 12 mm was found as the adult gastroscope was 9.5 mm in size. A bluebird bio balloon dilator was placed through the scope. Final insufflation up to 18 mm was performed with a total of 2 minutes. The scope was advanced up to 60 cm from the incisors into the Leona limb. The mucosa of the gastrojejunal anastomosis was intact. However chronic gastrojejunal marginal ulcer was encountered. No full-thickness injury was encountered. The GI tract was desufflated. The patient tolerated the procedure well. FINDINGS: Squamocolumnar junction unremarkable at 37 cm. Stricture of approximately 12 mm encountered. Chronic gastrojejunal ulceration encountered. Successful balloon dilatation to 18 mm. Gastric pouch 4 cm. RECOMMENDATIONS: Start omeprazole of at least 4 weeks. Plan - Discharge Summary Discharge Rx Participant: No New Discharge Prescriptions: New Omeprazole 40 mg PO DAILY #30 capsule.dr No Action Multivitamins, Thera [Multivitamin (formulary)] 1 tab PO DAILY Levothyroxine Sodium [Synthroid] 50 mcg PO QAM Ferrous Sulfate [Feosol] 325 mg PO DAILY Vitamin A 10,000 unit PO DAILY Calcium Citrate 400 mg PO TID Ergocalciferol [Vitamin D2 (DRISDOL)] 50,000 unit PO WEEKLY Discharge Medication List Ferrous Sulfate [Feosol] 325 mg PO DAILY 11/16/18 [History] Levothyroxine Sodium [Synthroid] 50 mcg PO QAM 11/16/18 [History] Multivitamins, Thera [Multivitamin (formulary)] 1 tab PO DAILY 11/16/18 [History] Calcium Citrate 400 mg PO TID 05/02/19 [History] Ergocalciferol [Vitamin D2 (DRISDOL)] 50,000 unit PO WEEKLY 05/02/19 [History] Vitamin A 10,000 unit PO DAILY 05/02/19 [History] Omeprazole 40 mg PO DAILY #30 capsule.dr 05/13/19 [Rx] Follow up Appointment(s)/Referral(s): Cheryl Wu MD [STAFF PHYSICIAN] - 05/22/19 Patient Instructions/Handouts: Peptic Ulcer (DC), Esophageal Dilation (DC) Discharge Disposition: HOME SELF-CARE
[2019-05-13 15:43] VITALS: BP 128/79; PULSE 62; RESP 20
== END 2019-05-13 15:57 | disposition home or self-care (01) ==
LOC: ORWHC2ENDO 14:13
PROVIDERS: ATTEND Surgery Plastic and Reconstructive Surgery
DX: K95.89 Other complications of other bariatric procedure (principal); R13.10 Dysphagia, unspecified; G47.30 Sleep apnea, unspecified; Z99.89 Dependence on other enabling machines and devices; E07.9 Disorder of thyroid, unspecified; D64.9 Anemia, unspecified; F17.200 Nicotine dependence, unspecified, uncomplicated; Z87.442 Personal history of urinary calculi; Z90.49 Acquired absence of other specified parts of digestive tract; Z98.890 Other specified postprocedural states; Z80.0 Family history of malignant neoplasm of digestive organs; Z80.9 Family history of malignant neoplasm, unspecified; Z79.890 Hormone replacement therapy
CPT/HCPCS: 81025; 43245; J2001; J2704; C1726

== ENCOUNTER → 2019-07-19 | Outpatient (CLI) | payer MEDICAID ==
--- NOTE | 2019-07-22 09:38 | MM ---
Reason for exam: screening (asymptomatic). Last mammogram was performed 2 years and 5 months ago. History: Patient is postmenopausal and is nulliparous. Took hormonal contraceptives for 7 years. Physical Findings: A clinical breast exam by your physician is recommended on an annual basis and results should be correlated with mammographic findings. MG 3D Screening Mammo W/Cad Bilateral CC and MLO view(s) were taken. Prior study comparison: February 01, 2017, mammogram. May 25, 2015, mammogram. There are scattered fibroglandular densities. No suspicious abnormality. No significant changes when compared with prior studies. ASSESSMENT: Negative, BI-RAD 1 RECOMMENDATION: Routine screening mammogram of both breasts in 1 year.
== END | disposition home or self-care (01) ==
LOC: RADMAMWWP 10:19
PROVIDERS: ATTEND Obstetrics & Gynecology
DX: Z12.31 Encounter for screening mammogram for malignant neoplasm of breast (principal)
CPT/HCPCS: 77063; 77067

== ENCOUNTER → 2020-02-18 | Outpatient (CLI) | payer MEDICAID ==
--- NOTE | 2020-02-18 14:19 | XR ---
EXAMINATION TYPE: XR cervical spine comp DATE OF EXAM: 02/18/2020 TECHNIQUE: Frontal, lateral neutral/extension/flexion, and open mouth views of the cervical spine are obtained. HISTORY: Trauma, neck pain. Pain, headaches, nausea after fall 2 weeks ago. COMPARISON: None FINDINGS: The cervical spine is visualized from C1 thru the C7 level. The top of T1 is not visualize d on lateral images. Normal alignment without evidence of acute fracture or dislocation. There is no evidence of spondylolisthesis in neutral, flexion, or extension views. No significant disc space narr owing. There is degenerative spurring of C5-C6. There is uncovertebral hypertrophy of C3-C5. The pre- vertebral soft tissue appears within normal limits. The atlantoaxial relationship and the base of the dens is within normal limits on the open mouth view. IMPRESSION: 1. No acute fracture or dislocation is seen in the cervical spine. 2. Degenerative changes as above.
== END | disposition home or self-care (01) ==
LOC: RADXRMAIN 12:31
PROVIDERS: ATTEND Physical Medicine & Rehabilitation
DX: M47.812 Spondylosis without myelopathy or radiculopathy, cervical region (principal)
CPT/HCPCS: 72050

== ENCOUNTER → 2020-05-08 | Outpatient (CLI) | payer MEDICAID ==
--- NOTE | 2020-05-09 15:46 | XR ---
Left ankle HISTORY: Ankle and heel pain 3 views the left ankle There is soft tissue swelling present. Mild joint space loss present at the tibiotalar joint. Alignme nt is maintained. There is a plantar calcaneal spur. Enthesophyte present at the insertion of the Ach illes tendon. Arthropathy change present at the intertarsal joints, tarsometatarsal joints, spurring present at the tibiotalar joint. No evident joint effusion. Soft tissue calcifications in the distal leg likely are due to phleboliths. IMPRESSION: Osteoarthritis. Additional findings above.
== END | disposition home or self-care (01) ==
LOC: RAD 16:30
PROVIDERS: ATTEND Nurse Practitioner Family
DX: M19.072 Primary osteoarthritis, left ankle and foot (principal); M77.8 Other enthesopathies, not elsewhere classified; M79.9 Soft tissue disorder, unspecified

== ENCOUNTER → 2020-10-02 | Outpatient (CLI) | payer MEDICAID ==
--- NOTE | 2020-10-05 10:25 | MM ---
Reason for exam: screening (asymptomatic). Last mammogram was performed 1 year and 3 months ago. History: Patient is postmenopausal and is nulliparous. Took hormonal contraceptives for 7 years. Physical Findings: A clinical breast exam by your physician is recommended on an annual basis and results should be correlated with mammographic findings. MG 3D Screening Mammo W/Cad Bilateral CC and MLO view(s) were taken. Prior study comparison: July 19, 2019, bilateral MG 3d screening mammo w/cad. February 01, 2017, mammogram. There are scattered fibroglandular densities. There is no discrete abnormality. ASSESSMENT: Negative, BI-RAD 1 RECOMMENDATION: Routine screening mammogram of both breasts in 1 year.
== END | disposition home or self-care (01) ==
LOC: RADMAMWWP 09:02
PROVIDERS: ATTEND Obstetrics & Gynecology
DX: Z12.31 Encounter for screening mammogram for malignant neoplasm of breast (principal); Z78.0 Asymptomatic menopausal state
CPT/HCPCS: 77063; 77067

== ENCOUNTER → 2020-10-09 | Outpatient (CLI) | payer MEDICAID ==
[2020-10-09 08:31] LABS: Basophils # (A) 0.1 k/uL (0-0.2); Basophils % (A) 1 %; Eosinophils # (A) 0.3 k/uL (0-0.7); Eosinophils % (A) 3 %; HCT 44.4 % (34.0-46.0); HGB 13.6 gm/dL (11.4-16.0); Hypochromasia Slight; Lymphocytes % (A) 22 %; MCHC 30.7 g/dL (31.0-37.0); MCV 84.7 fL (80.0-100.0); Mean Platelet Volume 8.1; Monocytes # (A) 0.4 k/uL (0-1.0); Monocytes % (A) 5 %; Neutrophils # (A) 6.1 k/uL (1.3-7.7); Neutrophils % (A) 68 %; Platelet Count 233 k/uL (150-450); RBC 5.25 m/uL (3.80-5.40); RDW 14.3 % (11.5-15.5); WBC 9.1 k/uL (3.8-10.6)
== END | disposition home or self-care (01) ==
LOC: LABPAT 07:16
PROVIDERS: ATTEND Obstetrics & Gynecology
DX: Z01.818 Encounter for other preprocedural examination (principal); N92.0 Excessive and frequent menstruation with regular cycle; R93.89 Abnormal findings on diagnostic imaging of other specified body structures
CPT/HCPCS: 36415; 85025

== ENCOUNTER 2020-10-13 07:30 | Day surgery (SDC) | payer MEDICAID ==
[2020-10-08 10:41] VITALS: BMI 50.3
[~2020-10-13 07:30] MED LIST changes: +DEXAMETHASONE SOD PHOSPHATE 4 MG/ML 1 ML VIAL IV ONE; +LIDOCAINE 1% (10MG/ML) FOR IV START INTRADERMA PRN; -LIDOCAINE 1% 20 ML VIAL (10MG/ML) FOR IV START INTRADERMA PRN; +METOCLOPRAMIDE 5 MG/ML 2 ML VIAL IVP PRN; +ONDANSETRON 4 MG/2 ML VIAL IVP ONE; +Pre Op ABX Message 1 EACH MISC MISCELLANE ONE; +SCOPOLAMINE 1.5MG/72HR PATCH TRANSDERM ONE
[2020-10-13] MEDS ORDERED: MIDAZOLAM 2 MG/2 ML VIAL IVP ONE (08:17)
[2020-10-13 08:18] LABS: Glucose,Whole Blood 90 mg/dL (75-99)
[2020-10-13] MEDS ORDERED: PROPOFOL 10 MG/ML 20 ML VIAL IV ONE (08:51)
[2020-10-13] MEDS ORDERED: fentaNYL (PF) 50 MCG/ML 2 ML AMP ONE (08:51)
[2020-10-13] MEDS ORDERED: MIDAZOLAM 2 MG/2 ML VIAL ONE (08:51)
[2020-10-13] MEDS ORDERED: KETOROLAC 15 MG/ML 1 ML VIAL ONE (08:51)
[2020-10-13] MEDS ORDERED: LIDOCAINE 1% INJ 10MG/ML (20 ML MDV) ONE (08:51)
[2020-10-13] MEDS ORDERED: SUCCINYLCHOLINE CHLORIDE 100 MG/5 ML SYR IV ONE (08:51)
--- NOTE | 2020-10-13 09:39 | P.OP ---
Date of Procedure: 10/13/20 Preoperative Diagnosis: Menorrhagia, increased endometrial thickness sonographically. Postoperative Diagnosis: Same Procedure(s) Performed: Collection of Pap smear, hysteroscopy, D&C Anesthesia: LEIDYA Surgeon: Cheryl Potts Estimated Blood Loss (ml): 5 IV fluids (ml): 500 Urine output (ml): 150 Pathology: other (Endometrial curettings) Condition: stable Disposition: PACU Indications for Procedure: Inability to sample endometrial cavity in the office, inadequate Pap smear Description of Procedure: Patient is brought to the operating suite where a general anesthetic is administered without difficulty. She's placed in the dorsal lithotomy position. The appropriate timeout was performed to assure proper patient and procedural identification. The cervix, vagina, perineal bodies are all prepped and draped in usual sterile fashion. Examination under anesthesia reveals an anteverted uterus, negative adnexa bilaterally. Bladder is drained for approximately 150 mL of clear yellow urine. Speculum was placed into the vagina. The Pap smear is collected with both Cytobrush and spatula and sent to cytology. The anterior lip of the cervix is grasped with a double-tooth tenaculum. The uterus sounds to a depth of 6.5 cm. The cervix is gently and systematically dilated using Hanks dilators. The hysteroscope was placed and fluid is infused. The cavity is distended and inspected, there is a moderate amount of proliferative-type appearing tissue noted. No polyps or septa, no defects. Hysteroscope was removed. A medium sharp curette is used and the endometrial cavity is curettaged in all 4 quadrants for a moderate amount of tissue. Polyp forceps are used and no additional tissue is noted. Hysteroscope was once again placed and the cavity appears to be uniformly clear. All instrumentation is removed. Cervix is clean and dry. All sponge needle and enhancement counts are correct. Patient is brought back to the recovery room in very good condition with stable vital signs including a pulse 57, blood pressure 156/88, 100% O2 saturation. She will follow-up in the office with me in 2 weeks. Toradol is given prior to leaving the operative room.
[2020-10-13 09:42] VITALS: RESP 16; TEMP 97
[2020-10-13] MEDS: HYDROmorphone 0.5 MG/0.5 ML SYRINGE IVP PRN ×2 (09:46→09:53)
[2020-10-13 10:48] VITALS: PULSE 68
[2020-10-13 11:31] VITALS: BP 128/84
== END 2020-10-13 11:42 | disposition home or self-care (01) ==
LOC: OR 07:30
PROVIDERS: ATTEND Obstetrics & Gynecology
DX: N92.0 Excessive and frequent menstruation with regular cycle (principal); N84.0 Polyp of corpus uteri; N85.00 Endometrial hyperplasia, unspecified; E03.9 Hypothyroidism, unspecified; E66.01 Morbid (severe) obesity due to excess calories; Z79.890 Hormone replacement therapy; Z79.899 Other long term (current) drug therapy; Z82.49 Family history of ischemic heart disease and other diseases of the circulatory system; Z80.0 Family history of malignant neoplasm of digestive organs; Z80.49 Family history of malignant neoplasm of other genital organs; Z85.72 Personal history of non-Hodgkin lymphomas; Z86.16 Personal history of COVID-19; Z87.442 Personal history of urinary calculi; Z98.84 Bariatric surgery status
CPT/HCPCS: 81025; 88305; 58558; J2250; J1100; J2405; J2001; J3010; J1885; J0330; J2704; J1170

== ENCOUNTER → 2021-05-21 | Outpatient (CLI) | payer MEDICAID ==
--- NOTE | 2021-05-21 15:14 | XR ---
Left foot HISTORY: Trauma one week prior, pain, S99.811F 3 views the left foot There are mild arthropathy changes, hypertrophic change at the first metatarsophalangeal joint with j oint space loss noted. There is enthesophyte present at the insertion of the Achilles tendon, possibl e calcific tendinitis. Plantar calcaneus spur is present. Spurring is present at the intertarsal join ts, tarsometatarsal joints. Digits are flexed. No fracture or dislocation evident. IMPRESSION: Osteoarthritis. Additional findings above.
== END | disposition home or self-care (01) ==
LOC: RADXRMAIN 14:32
PROVIDERS: ATTEND Nurse Practitioner Family
DX: M19.072 Primary osteoarthritis, left ankle and foot (principal)

== ENCOUNTER → 2021-12-20 | Outpatient (CLI) | payer BC ==
--- NOTE | 2021-12-20 17:16 | CA ---
Transthoracic Echo Report Name: Sophy Padilla Age: 51 Gender: F : 1970 Exam Date: 12/20/2021 13:40 Exam Location: [place] [facility] Ht (in): 62 Wt (lb): 271 Ordering Physician: Gio Cox DO Attending/Referring Phys: Mily Puentes [facility] Front Desk Specialist Sara Ann, ALMITA Procedure CPT: Indications: R01.0 BENIGN AND INNOCENT CARDIAC MURMURS Cardiac Hx: Technical Quality: Fair Contrast 1: Total Dose (mL): Contrast 2: Total Dose (mL): MEASUREMENTS (Male / Female) Normal Values 2D ECHO LV Diastolic Diameter PLAX 3.2 cm 4.2 - 5.9 / 3.9 - 5.3 cm LV Systolic Diameter PLAX 2.2 cm IVS Diastolic Thickness 1.3 cm 0.6 - 1.0 / 0.6 - 0.9 cm LVPW Diastolic Thickness 1.1 cm 0.6 - 1.0 / 0.6 - 0.9 cm LV Relative Wall Thickness 0.7 RV Internal Dim ED PLAX 2.9 cm LA Systolic Diameter LX 3.3 cm 3.0 - 4.0 / 2.7 - 3.8 cm LA Volume 40.0 cm??? 18 - 58 / 22 - 52 cm??? M-MODE Aortic Root Diameter MM 3.0 cm MV E Point Septal Separation 0.9 cm AV Cusp Separation MM 2.0 cm DOPPLER AV Peak Velocity 148.2 cm/s AV Peak Gradient 8.8 mmHg MV Area PHT 2.3 cm??? Mitral E Point Velocity 59.4 cm/s Mitral A Point Velocity 68.0 cm/s Mitral E to A Ratio 0.9 MV Deceleration Time 326.5 ms MV E' Velocity 5.4 cm/s Mitral E to MV E' Ratio 10.9 FINDINGS Left Ventricle Left ventricular ejection fraction is estimated at 55-60 %. Left ventricular cavity size normal. Mild concentric left ventricular hypertrophy. Right Ventricle Normal right ventricular size and function. Unable to estimate the right ventricular systolic pressure. Right Atrium Normal right atrial size. Left Atrium Normal left atrial size. No evidence for an atrial septal defect. Mitral Valve Structurally normal mitral valve. No mitral stenosis, regurgitation or prolapse. l valve. Aortic Valve Trileaflet aortic valve. No aortic valve stenosis or regurgitation. Tricuspid Valve Structurally normal tricuspid valve. Pulmonic Valve Structurally normal pulmonic valve. Pericardium No pericardial effusion. Aorta Normal size aortic root and proximal ascending aorta. CONCLUSIONS Normal LV systolic function Previewed by: Dr. Esteban Delarosa MD (Electronically Signed) Final Date: 20 December 2021 17:16
== END | disposition home or self-care (01) ==
LOC: RADECHMAIN 13:34
PROVIDERS: ATTEND Family Medicine
DX: R01.0 Benign and innocent cardiac murmurs (principal)
CPT/HCPCS: 93306

== ENCOUNTER → 2022-10-03 | Outpatient (CLI) | payer OTHER ==
[2022-10-03 11:05] LABS: ALT 18 U/L (8-44); AST 18 U/L (13-35); African American GFR (CKD) 121.2 (60.0-200.0); Albumin 3.9 g/dL (3.8-4.9); Albumin/Globulin Ratio 1.58 (1.60-3.17); Alkaline Phosphatase 82 U/L (41-126); BUN/Creat Ratio 11.88 Ratio (12.00-20.00); Blood Urea Nitrogen 7.7 mg/dL (9.0-27.0); Carbon Dioxide 27.8 mmol/L (20.0-27.5); Chloride 105 mmol/L (96-109); Chol/HDL Ratio 2.85 Ratio; Ferritin 8.6 ng/mL (10.0-291.0); Globulin 2.5 g/dL (1.6-3.3); Glucose 94 mg/dL (70-110); Iron 36 ug/dL (50-170); LDL Cholesterol,Calculated 74.4 mg/dL (0.0-131.0); Non-African American GFR(CKD) 104.6 (60.0-200.0); Potassium 4.6 mmol/L (3.5-5.5); Sodium 144 mmol/L (135-145); Total Iron Binding Capacity 431 ug/dL (228-460); Total Protein 6.3 g/dL (6.2-8.2)
[2022-10-03 11:17] LABS: Basophils # (A) 0.07 X 10*3/uL (0.00-0.10); Basophils % (A) 0.7 %; Eosinophils # (A) 0.39 X 10*3/uL (0.04-0.35); HCT 39.1 % (37.2-46.3); HGB 11.6 g/dL (12.0-15.0); Immature Grans, Automated 0.3 %; Lymphocytes # (A) 2.48 X 10*3/uL (0.90-5.00); Lymphocytes % (A) 25.5 %; MCH 24.6 pg (27.0-32.0); MCHC 29.7 g/dL (32.0-37.0); Mean Platelet Volume 10.5 fL (9.5-12.2); Monocytes % (A) 6.2 %; NRBC Per 100 WBC 0 /100 WBCS (0.0-0.0); Neutrophils # (A) 6.14 X 10*3/uL (1.80-7.70); Neutrophils % (A) 63.3 %; Platelet Count 294 X 10*3/uL (140-440); RBC 4.71 X 10*6/uL (4.10-5.20); RDW 14.6 % (11.5-14.5); WBC 9.71 X 10*3/uL (4.50-10.00)
== END | disposition home or self-care (01) ==
LOC: LABWHC1 06:57
PROVIDERS: ATTEND Nurse Practitioner Family
DX: Z13.220 Encounter for screening for lipoid disorders (principal); D50.9 Iron deficiency anemia, unspecified; R53.83 Other fatigue
CPT/HCPCS: 36415; 80053; 80061; 82728; 83540; 83550; 84439; 84443; 85025

== ENCOUNTER → 2022-10-13 | Outpatient (CLI) | payer OTHER ==
--- NOTE | 2022-10-14 16:08 | MM ---
Reason for Exam: Screening (asymptomatic). Last mammogram was performed 2 year(s) and 0 month(s) ago. Patient History: Menarche at age 14. Patient has no children. Postmenopausal. Patient used Hormonal Contraceptives for 7 years. Sister had ovarian cancer under age 50. Risk Values: Adeline 5 year model risk: 1.0%. NCI Lifetime model risk: 10.0%. Prior Study Comparison: 02/01/2017 Screening Mammogram, Unknown. 07/19/2019 Bilateral Screening Mammogram, [facility]. 10/02/2020 Bilateral Screening Mammogram, [facility]. Tissue Density: There are scattered fibroglandular densities. Findings: Analyzed By CAD. Pattern appears symmetrical and stable. No significant interval change is evident. No suspicious groups of microcalcifications, spiculated or lobular masses, architectural distortion or other secondary signs of malignancy are mammographically apparent. Overall Assessment: Benign, BI-RAD 2 Management: Screening Mammogram of both breasts in 1 year. A negative mammogram report should not preclude additional follow up of suspicious palpable abnormalities. Patient should continue monthly self breast exam. A clinical breast exam by your physician is recommended on an annual basis and results should be correlated with mammographic findings. Electronically signed and approved by: Toro Hassan D.O. Radiologis
== END | disposition home or self-care (01) ==
LOC: RADMAMWWP 09:31
PROVIDERS: ATTEND Obstetrics & Gynecology
DX: Z12.31 Encounter for screening mammogram for malignant neoplasm of breast (principal); Z78.0 Asymptomatic menopausal state
CPT/HCPCS: 77063; 77067

== ENCOUNTER → 2022-11-07 | Day surgery (SDC) | payer OTHER ==
[2022-11-04 09:31] VITALS: BMI 49.9
[~2022-11-07] MED LIST changes: +ASPIRIN 81 MG PO ONE; -DEXAMETHASONE SOD PHOSPHATE 4 MG/ML 1 ML VIAL IV ONE; +DEXAMETHASONE SOD PHOSPHATE 4 MG/ML 1 ML VIAL IVP ONE; +HYDROmorphone 0.5 MG/0.5 ML SYRINGE IVP ONE; +KETOROLAC 30 MG/ML 1 ML VIAL ONE; +LACTATED RINGERS 1,000 ML IV ONE; -LACTATED RINGERS 1,000 ML IV SCH; -LIDOCAINE 1% (10MG/ML) FOR IV START INTRADERMA PRN; +LIDOCAINE 2% INJ 20 MG/ML (2 ML VIAL) ONE; -METOCLOPRAMIDE 5 MG/ML 2 ML VIAL IVP PRN; +MIDAZOLAM 2 MG/2 ML VIAL ONE; +NITROGLYCERIN SL TABS 0.4 MG TAB SUBLINGUAL ONE; -ONDANSETRON 4 MG/2 ML VIAL IVP ONE; +ONDANSETRON 4 MG/2 ML VIAL ONE; +PROPOFOL 10 MG/ML 20 ML VIAL IV ONE; -SCOPOLAMINE 1.5MG/72HR PATCH TRANSDERM ONE; +SUCCINYLCHOLINE CHLORIDE 200 MG/10 ML VIAL IV ONE; +fentaNYL (PF) 50 MCG/ML 2 ML AMP IVP ONE; +fentaNYL (PF) 50 MCG/ML 2 ML AMP ONE
[2022-11-07 10:29] VITALS: TEMP 97.8
--- NOTE | 2022-11-07 14:09 | P.OP ---
Date of Procedure: 11/07/22 Preoperative Diagnosis: Menorrhagia, sonographic and histologic evidence of endometrial polyps Postoperative Diagnosis: Endometrial polyps Procedure(s) Performed: Hysteroscopy, D&C, polypectomy. Anesthesia: LEIDYA Surgeon: Cheryl Potts Estimated Blood Loss (ml): 10 IV fluids (ml): 500 Urine output (ml): 100 Pathology: other (Endometrial curettings and polyps) Condition: stable Disposition: PACU Operative Findings: 2 a predominantly large endometrial polyps in an otherwise normal-appearing endometrial cavity Description of Procedure: Patient is brought to the Apri and suite where a general anesthetic is administered without difficulty. She's placed in the dorsal lithotomy position. The cervix, vagina, perineal body and lower abdomen are all prepped and draped in usual sterile fashion. Timeout is performed, urine hCG is negative. The proper procedure is identified. Bladder is drained for approximately 100 mL of clear yellow urine. Weighted speculum was placed into the vagina. Anterior lip of the cervix is grasped with a double-tooth tenaculum. Uterus sounds to a depth of 8 cm. The cervix is gently and systematically dilated using Hanks dilators. Hysteroscope was placed and fluid is infused. Inspection of the cavity reveals 2 large endometrial polyps. Hysteroscope was removed. Medium sharp curette is used in both polyps are removed. Polyp forcep is then introduced and a small amount of additional tissue is procured. Cavity is clear. Bleeding is minimal. All sponge needle and enhancement counts are correct. Patient is brought back to the recovery room in excellent condition with stable vital signs including a blood pressure 166/87, pulse 107. Toradol is given prior to leaving the operative suite. Patient will follow-up with me in the office in 2 weeks.
[2022-11-07 18:33] VITALS: BP 148/69; PULSE 72; RESP 18
== END | disposition home or self-care (01) ==
LOC: OR 09:33
PROVIDERS: ATTEND Obstetrics & Gynecology
DX: N84.0 Polyp of corpus uteri (principal); N92.0 Excessive and frequent menstruation with regular cycle; I10 Essential (primary) hypertension; E66.01 Morbid (severe) obesity due to excess calories; Z68.41 Body mass index [BMI] 40.0-44.9, adult; Z98.890 Other specified postprocedural states; Z79.899 Other long term (current) drug therapy
CPT/HCPCS: 81025; 88305; 84132; 58558; J2250; J0330; J1100; J2405; J3010; J1885; J2704; J1170; J2001

== ENCOUNTER → 2023-04-19 | Outpatient (CLI) | payer OTHER ==
--- NOTE | 2023-04-19 18:04 | XR ---
EXAMINATION TYPE: XR lumbar spine 2 or 3V DATE OF EXAM: 04/19/2023 CLINICAL HISTORY: M 25.552 TECHNIQUE: Three views of the lumbar spine are submitted. COMPARISON: CT abdomen pelvis 11/22/2018 FINDINGS: There are 5 lumbar type vertebral bodies identified. No acute fracture. Vertebral body heights are ma intained. Minimal grade 1 anterolisthesis of L4 on L5 redemonstrated. Multilevel facet arthropathy of the lower lumbar spine most pronounced at L5-S1. Multilevel disc space narrowing with endplate scler osis of the upper lumbar spine and lower thoracic spine. The overlying soft tissue appears unremarka ble. Cholecystectomy clips in the right upper quadrant. Postsurgical changes of the stomach with sutu re material in the left upper quadrant. IMPRESSION: 1. No acute fracture. 2. Mild multilevel degenerative disc disease and facet arthropathy.
--- NOTE | 2023-04-19 18:05 | XR ---
EXAMINATION TYPE: XR Hip Bilateral and AP pelvis DATE OF EXAM: 04/19/2023 4:42 PM INDICATION: Patient age:Female; 52 years old; Reason for study: M25.552; [facility]. COMPARISON: CT abdomen pelvis 11/22/2018 TECHNIQUE: Both hips were examined in the frontal and lateral projections and a AP pelvis. FINDINGS: No evidence of any acute osseous pathology, joint dislocation, or soft tissue swelling. No significant joint space narrowing or spurring of both hips. IMPRESSION: No acute osseous pathology.
== END | disposition home or self-care (01) ==
LOC: RADXRMAIN 16:21
PROVIDERS: ATTEND Family Medicine
DX: M25.552 Pain in left hip (principal); M51.36 Other intervertebral disc degeneration, lumbar region; M47.816 Spondylosis without myelopathy or radiculopathy, lumbar region
CPT/HCPCS: 72100; 73521

== ENCOUNTER → 2023-05-10 | Outpatient (CLI) | payer OTHER ==
[2023-05-10 20:47] LABS: Basophils # (A) 0.15 X 10*3/uL (0.00-0.10); Eosinophils # (A) 0.26 X 10*3/uL (0.04-0.35); Eosinophils % (A) 1.8 %; HCT 46.9 % (37.2-46.3); HGB 15.1 g/dL (12.0-15.0); Lymphocytes % (A) 28.3 %; MCH 29.5 pg (27.0-32.0); MCHC 32.2 g/dL (32.0-37.0); MCV 91.6 FL (80.0-97.0); Monocytes # (A) 0.95 X 10*3/uL (0.20-1.00); Monocytes % (A) 6.4 %; NRBC Per 100 WBC 0 X 10*3/uL (0.00-0.01); Neutrophils # (A) 9.16 X 10*3/uL (1.80-7.70); Neutrophils % (A) 61.7 %; Platelet Count 314 X 10*3/uL (140-440); RBC 5.12 X 10*6/uL (4.10-5.20); WBC 14.84 X 10*3/uL (4.50-10.00)
== END | disposition home or self-care (01) ==
LOC: LABPAT 11:35
PROVIDERS: ATTEND Obstetrics & Gynecology
DX: Z01.812 Encounter for preprocedural laboratory examination (principal); N85.01 Benign endometrial hyperplasia; N95.0 Postmenopausal bleeding; I10 Essential (primary) hypertension; R94.31 Abnormal electrocardiogram [ECG] [EKG]
CPT/HCPCS: 85025; 93005

== ENCOUNTER 2023-05-15 07:56 | Day surgery (SDC) | payer OTHER ==
[2023-05-15] MEDS ORDERED: ONDANSETRON 4 MG/2 ML VIAL IVP ONE ×2 (08:04→11:17)
[2023-05-15] MEDS ORDERED: MIDAZOLAM 2 MG/2 ML VIAL IV PRN (08:04)
[2023-05-15] MEDS ORDERED: LACTATED RINGERS 1,000 ML IV SCH (08:04)
[2023-05-15] MEDS ORDERED: DEXAMETHASONE SOD PHOSPHATE 4 MG/ML 1 ML VIAL IV ONE (08:04)
[2023-05-15] MEDS ORDERED: SCOPOLAMINE 1 MG/72 HR PATCH TRANSDERM ONE (08:04)
[2023-05-15] MEDS ORDERED: HYDROmorphone 0.5 MG/0.5 ML SYRINGE IVP PRN (08:04)
[2023-05-15 08:35] LABS: Glucose,Whole Blood 117 mg/dL (70-110)
[2023-05-15] MEDS ORDERED: KETOROLAC 15 MG/ML 1 ML VIAL ONE (09:21)
[2023-05-15] MEDS ORDERED: ALBUTEROL INHALER 60 PUFF/8 GM INHALER (MHU) INHALATION ONE (09:21)
[2023-05-15] MEDS ORDERED: fentaNYL (PF) 50 MCG/ML 2 ML AMP ONE (09:21)
[2023-05-15] MEDS ORDERED: LIDOCAINE 1% INJ 10MG/ML (20 ML MDV) ONE (09:21)
[2023-05-15] MEDS ORDERED: PROPOFOL 10 MG/ML 20 ML VIAL IV ONE (09:21)
[2023-05-15] MEDS ORDERED: MIDAZOLAM 2 MG/2 ML VIAL ONE (09:21)
--- NOTE | 2023-05-15 09:53 | P.OP ---
Date of Procedure: 05/15/23 Preoperative Diagnosis: 1. Post-menopausal bleeding 2. Endometrial Hyperplasia without Atypia Postoperative Diagnosis: Same Procedure(s) Performed: Hysteroscopy Dilation and Curettage Implants: None Anesthesia: LEIDYA Surgeon: Sadia Saldana Estimated Blood Loss (ml): 5 IV fluids (ml): 400 Urine output (ml): 20 (clear yellow) Pathology: other (endometrial curettings) Condition: stable Disposition: same day Indications for Procedure: Ms. Padilla is a 52 year old post-menopausal female who presents today for hysteroscopy D&C for post-menopausal bleeding and history of endometrial hyperplasia without atypia. The risks, benefits, and alternatives to hysteroscopy D&C were discussed with the patient including risk of bleeding, infection, damage to surrounding structures, and uterine perforation. All questions answered. Patient desires to proceed with surgery as scheduled. Operative Findings: Shaggy, proliferative appearing endometrium Description of Procedure: Patient is brought to the operating suite and placed in the dorsal lithotomy position. The cervix perineum and lower abdomen are prepped and draped in the usual sterile fashion. Examination under anesthesia reveals a anteverted uterus. Adnexa are negative bilaterally. The bladder is drained for approximately 20 mL of clear yellow urine. The anterior lip of the cervix is grasped with a double toothed tenaculum after the weighted speculum is placed into the vagina. The uterus sounds to a depth of 9 cm in the anteverted position. The Hanks dilators are placed and the cervix was dilated to 12 mm. The hysteroscope was then introduced and with saline infusion the cavity is distended. Shaggy proliferative type endometrium is noted. The cervix is then dilated to 18 mm. A medium sharp curette is used and the polyps and tissue are thoroughly evacuated. The "quiet cry of the uterus" is then appreciated. All sponge needle and instrument counts are correct. Instrumentation is removed from the vagina and the patient is brought to the recovery room in stable condition. Toradol is given prior to leaving the operative suite. Patient will follow up with me in the office in 2 weeks. Verbal and written instructions are provided.
[2023-05-15 10:35] VITALS: TEMP 97.4
[2023-05-15] MEDS ORDERED: ONDANSETRON 4 MG/2 ML VIAL ONE (11:12)
[2023-05-15] MEDS ORDERED: droPERidol 5 MG/2 ML VIAL IVP ONE (12:03)
[2023-05-15 12:07] VITALS: PULSE 80; RESP 18
[2023-05-15 13:30] VITALS: BP 132/74
== END 2023-05-15 13:20 | disposition home or self-care (01) ==
LOC: OR 07:56
PROVIDERS: ATTEND Obstetrics & Gynecology
DX: N95.0 Postmenopausal bleeding (principal); N85.00 Endometrial hyperplasia, unspecified; J45.909 Unspecified asthma, uncomplicated; Z90.49 Acquired absence of other specified parts of digestive tract; Z98.890 Other specified postprocedural states; Z79.899 Other long term (current) drug therapy
CPT/HCPCS: 58558; 81025; 88305; 84132; J2250; J1100; J2405; J2001; J3010; J1885; J2704; J1170; J1790

== ENCOUNTER → 2023-08-15 | Outpatient (CLI) | payer OTHER | END | disposition home or self-care (01) | LOC: LABMAIN 16:53 | PROVIDERS: ATTEND Obstetrics & Gynecology | DX: Z53.9 Procedure and treatment not carried out, unspecified reason (principal) ==

== ENCOUNTER → 2023-08-17 | Outpatient (CLI) | payer OTHER ==
[2023-08-17 15:56] LABS: Basophils # (A) 0.07 X 10*3/uL (0.00-0.10); Basophils % (A) 0.7 %; Eosinophils # (A) 0.36 X 10*3/uL (0.04-0.35); Eosinophils % (A) 3.6 %; HGB 14.3 g/dL (12.0-15.0); Lymphocytes # (A) 2.11 X 10*3/uL (0.90-5.00); Lymphocytes % (A) 20.8 %; MCH 28.9 pg (27.0-32.0); MCHC 31.8 g/dL (32.0-37.0); MCV 91.1 FL (80.0-97.0); Mean Platelet Volume 10.8 FL (9.5-12.2); Monocytes # (A) 0.48 X 10*3/uL (0.20-1.00); Monocytes % (A) 4.7 %; NRBC Per 100 WBC 0 X 10*3/uL (0.00-0.01); Neutrophils # (A) 7.09 X 10*3/uL (1.80-7.70); Neutrophils % (A) 69.9 %; Platelet Count 279 X 10*3/uL (140-440); RBC 4.94 X 10*6/uL (4.10-5.20); RDW 13.6 % (11.5-14.5); WBC 10.14 X 10*3/uL (4.50-10.00)
[2023-08-17 16:38] LABS: Blood Urea Nitrogen 12.1 mg/dL (9.0-27.0); Carbon Dioxide 30.3 mmol/L (21.6-31.8); Chloride 101 mmol/L (96-109); Glucose 129 mg/dL (70-110); Potassium 3.9 mmol/L (3.5-5.5); Sodium 143 mmol/L (135-145)
== END | disposition home or self-care (01) ==
LOC: LABPAT 08:04
PROVIDERS: ATTEND Obstetrics & Gynecology
DX: Z01.812 Encounter for preprocedural laboratory examination (principal); N85.01 Benign endometrial hyperplasia; N95.0 Postmenopausal bleeding
CPT/HCPCS: 80051; 82565; 82947; 84520; 85025; 86850; 86900; 86901; 87086

== ENCOUNTER 2023-08-21 07:04 | Day surgery (SDC) | payer OTHER ==
[2023-08-15 11:06] VITALS: BMI 49.4
[2023-08-21] MEDS: LACTATED RINGERS 1,000 ML IV ONE ×3 (07:47→10:45)
[2023-08-21 07:52] VITALS: RESP 16
[2023-08-21] MEDS ORDERED: SCOPOLAMINE 1 MG/72 HR PATCH TRANSDERM ONE (08:04)
[2023-08-21] MEDS ORDERED: DEXAMETHASONE SOD PHOSPHATE 4 MG/ML 1 ML VIAL IV ONE ×2 (08:04→11:11)
[2023-08-21] MEDS ORDERED: ONDANSETRON 4 MG/2 ML VIAL ONE (08:07)
[2023-08-21] MEDS ORDERED: diphenhydrAMINE 50 MG/ML 1 ML VIAL ONE (08:08)
[2023-08-21] MEDS ORDERED: LACTATED RINGERS 1,000 ML IV SCH ×2 (08:15→11:11)
[2023-08-21] MEDS: ONDANSETRON 4 MG/2 ML VIAL IVP ONE ×2 (08:24→12:23)
[2023-08-21] MEDS: FAMOTIDINE 20 MG/2 ML VIAL IVP ONE (08:24)
[2023-08-21] MEDS: DEXAMETHASONE SOD PHOSPHATE 4 MG/ML 1 ML VIAL IVP ONE (08:25)
[2023-08-21] MEDS: MIDAZOLAM 2 MG/2 ML VIAL IVP ONE (08:26)
[2023-08-21] MEDS: diphenhydrAMINE 50 MG/ML 1 ML VIAL IVP ONE (08:26)
[2023-08-21] MEDS: SCOPOLAMINE 1 MG/72 HR PATCH TRANSDERM ONE (08:27)
[2023-08-21] MEDS ORDERED: GLYCOPYRROLATE 0.2 MG/ML 2 ML VIAL ONE (08:55)
[2023-08-21] MEDS ORDERED: PROPOFOL 10 MG/ML 20 ML VIAL IV ONE (08:55)
[2023-08-21] MEDS ORDERED: HYDROmorphone (PF) 1 MG/ML ONE (08:55)
[2023-08-21] MEDS ORDERED: fentaNYL (PF) 50 MCG/ML 2 ML AMP ONE (08:55)
[2023-08-21] MEDS ORDERED: SUCCINYLCHOLINE CHLORIDE 200 MG/10 ML VIAL IV ONE (08:55)
[2023-08-21] MEDS ORDERED: PHENYLEPHRINE 10 MG/ML VIAL ONE (08:55)
[2023-08-21] MEDS ORDERED: MIDAZOLAM 2 MG/2 ML VIAL ONE (08:55)
[2023-08-21] MEDS ORDERED: NEOSTIGMINE 1 MG/ML 10 ML VIAL ONE (08:55)
[2023-08-21] MEDS ORDERED: ROCURONIUM 10 MG/ML (5 ML VIAL) IV ONE (08:55)
[2023-08-21] MEDS ORDERED: LIDOCAINE 1% INJ 10MG/ML (20 ML MDV) ONE (08:55)
[2023-08-21] MEDS: ceFAZolin 3 GM in SODIUM CHLORIDE 0.9% 100 ML IVPB PRN (09:20)
[2023-08-21] MEDS: metroNIDAZOLE-NS PMX 500 MG in SALINE 1 100ML.BAG IVPB PRN (09:30)
[2023-08-21] MEDS: BUPIVACAINE (PF) 0.25% 30 ML VIAL SQ ONE ×2 (10:03→10:43)
[2023-08-21] MEDS ORDERED: ONDANSETRON 4 MG/2 ML VIAL IVP ONE (11:11)
[2023-08-21] MEDS ORDERED: MIDAZOLAM 2 MG/2 ML VIAL IV PRN (11:11)
[2023-08-21] MEDS ORDERED: LIDOCAINE 1% (10MG/ML) FOR IV START INTRADERMA PRN (11:11)
--- NOTE | 2023-08-21 11:17 | P.OP ---
Date of Procedure: 08/21/23 Preoperative Diagnosis: 1. Endometrial Hyperplasia without Atypia Postoperative Diagnosis: Same Procedure(s) Performed: Robotic Assisted Total Laparoscopic Hysterectomy with Bilateraly Salpingectomy, Cystoscopy Implants: None Anesthesia: VELMA Surgeon: Sadia Saldana [employer]: Haider Cuevas Estimated Blood Loss (ml): 10 IV fluids (ml): 900 Urine output (ml): 200 (clear yellow) Pathology: other (uterus, cervix, bilateral fallopian tubes) Condition: stable Disposition: same day Indications for Procedure: Ms. Padilla is a 52 year old with persistent endometrial hyperplasia without atypia that was unresponsive to treatment with prometrium. She presents for RATLH, BS, and cystoscopy today. The risks, benefits, and alternatives were discussed with the patient including risk of bleeding, infection, damage to surrounding structures including bladder/bowels/ureters, and post-operative VTE. The patient understands these risks and desires to proceed with surgery as discussed. Operative Findings: Normal-appearing uterus, fallopian tubes, and ovaries. Description of Procedure: Prior to the beginning of the procedure, the team paused to verify the patient's identity, the procedure to be performed (in accordance with the consent) and the correct side/site. The patient was positioned appropriately. All relevant images and results were properly labeled and displayed. We addressed antibiotic prophylaxis and fluids for irrigation as applicable to this patient. Any safety precautions were addressed. The patient was taken to the operating room where general anesthesia was induced without difficulty. She was then positioned in the dorsal lithotomy position in Sarmad stirrups. Positioning included placing he r arms at her sides. After the patient was placed in what was felt to be a neurologically safe position, deep Trendelenburg position was tested prior to the operative procedure, to ensure that she would not move on the operating table. The patient was then prepped and draped in the normal sterile fashion for a combined abdominovaginal surgery. A Bird catheter was placed in the bladder for continuous drainage. Uterus was sounded to 8 cm. V-Care manipulator was placed in the uterus for manipulation. Attention was then placed to the abdomen. An 8 mm port was placed at the umbilical site under direct laparscopic visualization and there was no evidence of injury from the trocar placement. The abdomen was then insufflated to 12mmHg for the remainder of the case. Visualization of the intraabdominal cavity showed normal pelvic anatomy without evidence of adhesions. The port sites for the remainder of the case were then measured out and placed under direct visualization. On the left side, one 8 mm robotic assist port and one 10 mm assist port were placed. On the right side, one 8 mm robotic port was placed. The PanGenXi robot was then brought to the operative field in a lateral docking style to the left of the patient and the robot was docked to the ports. All robotic instruments were brought into the pelvis under direct visualization with monopolar scissors in arm #3 and vessel sealer in arm #1. The right fallopian tube was grapsed by the fimbriated end. The Vessel Sealer was used to sequentially cauterize and cut the fallopian tube to the level of the uterine cornua. The right uteroovarian ligement was cauterized and cut. The right round ligament was cauterized and cut. Broad ligament was opened and bladder flap created. This was repeated on the left side. The peritoneum of the bilateral broad ligaments was then taken down and monopolar cautery used to skeletonize the uterine arteries bilaterally. During the course of this dissection, the anterior leaf of the broad ligament was also taken down over the anterior aspect of the uterus and cervix to create a bladder flap. The bladder was then dissected off the cervix and upper vagina with the monopolar scissors and gentle blunt dissection. The bilateral uterine arteries were then cauterized and divided at the level of the internal cervical os. The monopolar cautery was used to incise the vaginal cuff. The uterus, along with the cervix was removed vaginally. Cuff was closed in with 0-Stratifix suture. Excellent hemostasis was noted at this time. A 70 degree cystoscopy was performed which confirmed no suture placement within the bladder, no trauma to the bladder. Good efflux was noted from both ureteric orifices. The robot was undocked from the trocars and brought out of the operative field. The remainder of the ports were removed, and the gas was allowed to escape. All skin incisions were infiltrated with lidocaine and closed with 4-0 Monocryl and dermabond. Hemostasis was noted to be excellent throughout, and final sponge, instrument, and needle count was noted to be correct. The patient was moved back to the preoperative holding area in stable condition having tolerated the procedure well.
[2023-08-21] MEDS ORDERED: ACETAMINOPHEN TAB 500 MG TAB PO PRN (11:31)
[2023-08-21] MEDS: HYDROmorphone 0.5 MG/0.5 ML SYRINGE IVP PRN (11:47)
[2023-08-21 16:12] VITALS: BP 118/73; PULSE 95; TEMP 98
[2023-08-21] MEDS: KETOROLAC 15 MG/ML 1 ML VIAL IM SCH (17:17)
[2023-08-22] MEDS ORDERED: HYDROmorphone 0.5 MG/0.5 ML SYRINGE IVP PRN (07:00)
== END 2023-08-21 18:19 | disposition home or self-care (01) ==
LOC: OR 07:04 → 4FBP 10:44 → OR 18:19
PROVIDERS: ATTEND Obstetrics & Gynecology
DX: N72 Inflammatory disease of cervix uteri (principal); N85.00 Endometrial hyperplasia, unspecified; I10 Essential (primary) hypertension; G47.33 Obstructive sleep apnea (adult) (pediatric); F41.9 Anxiety disorder, unspecified; F32.A Depression, unspecified; E07.9 Disorder of thyroid, unspecified; Z79.890 Hormone replacement therapy; Z79.899 Other long term (current) drug therapy; Z87.442 Personal history of urinary calculi
CPT/HCPCS: 81025; 88307; 58571; J2250; J1200; J1100; J0690; J2405; J3490; J1885; J1170; J1836; J0665

== ENCOUNTER 2023-09-21 09:40 | Day surgery (SDC) | payer OTHER ==
--- NOTE | 2023-09-21 08:33 | P.GSHP ---
History of Present Illness H&P Date: 09/21/23 CHIEF COMPLAINT: GERD and colon screen HISTORY OF PRESENT ILLNESS: The patient is a 52-year-old female who presents with gastroesophageal reflux disease and need for colon screen. Upper and lower endoscopy were offered for further evaluation and management. PAST MEDICAL HISTORY: Please see list. PAST SURGICAL HISTORY: Please see list. MEDICATIONS: Please see list. ALLERGIES: Please see list. SOCIAL HISTORY: No illicit drug use FAMILY HISTORY: No reports of Crohn disease or ulcerative colitis. REVIEW OF ORGAN SYSTEMS: CONSTITUTIONAL: No reports of fevers or chills. GI: Denies any blood in stools or constipation. PHYSICAL EXAM: VITAL SIGNS: Stable GENERAL: Well-developed pleasant in no acute distress. HEENT: No scleral icterus. Extraocular movements grossly intact. Moist buccal mucosa. NECK: Supple without lymphadenopathy. CHEST: Unlabored respirations. Equal bilateral excursions. CARDIOVASCULAR: Regular rate and rhythm. Distal 2+ pulses. ABDOMEN: Soft, nondistended. MUSCULOSKELETAL: No clubbing, cyanosis, or edema. ASSESSMENT: 1. Gastroesophageal reflux disease 2. Colon screen. PLAN: 1. Recommend proceeding with an upper and lower endoscopy Past Medical History Past Medical History: Hypertension, Sleep Apnea/CPAP/BIPAP, Thyroid Disorder Additional Past Medical History / Comment(s): used to use CPAP-not needed since lost >100#, anemia, kidney stones, History of Any Multi-Drug Resistant Organisms: None Reported Past Surgical History: Adenoidectomy, Bariatric Surgery, Cholecystectomy, Hysterectomy, Tonsillectomy Additional Past Surgical History / Comment(s): rouxen y gastric bypass 2013. , D & C's, Colonoscopy10/2018,. Kidney stone removal Past Anesthesia/Blood Transfusion Reactions: No Reported Reaction Additional Past Anesthesia/Blood Transfusion Reaction / Comment(s): pt has had elevated BP before surgeries. ( anxiety). slow to wake Smoking Status: Never smoker - Past Family History Father Family Medical History: Cancer Brother(s) Family Medical History: Cancer Additional Family Medical History / Comment(s): colorectal Sister(s) Family Medical History: Cancer Additional Family Medical History / Comment(s): uterine,throat Medications and Allergies Home Medications Medication Instructions Recorded Confirmed Type Levothyroxine Sodium 88 mcg PO DAILY 10/26/22 09/18/23 History hydroCHLOROthiazide 50 mg PO DAILY 11/04/22 09/18/23 History [Hydrochlorothiazide] Ergocalciferol [Vitamin D2 (1250 1,250 mcg PO FAJARDO 08/15/23 09/18/23 History Mcg = 31924 Iu)] FLUoxetine HCL [PROzac] 20 mg PO DAILY 08/15/23 09/18/23 History Losartan [Cozaar] 25 mg PO DAILY 08/15/23 09/18/23 History Acetaminophen Tab [Tylenol] 650 mg PO Q6H PRN #30 tab 08/21/23 09/18/23 Rx Allergies Allergy/AdvReac Type Severity Reaction Status Date / Time No Known Allergies Allergy Verified 09/18/23 15:13
[2023-09-21] MEDS: LACTATED RINGERS 1,000 ML IV SCH (10:33)
[2023-09-21 10:35] VITALS: PULSE 66; TEMP 97
[2023-09-21] MEDS ORDERED: LIDOCAINE 1% INJ 10MG/ML (20 ML MDV) ONE (10:50)
[2023-09-21] MEDS ORDERED: PROPOFOL 10 MG/ML 20 ML VIAL IV ONE (10:50)
--- NOTE | 2023-09-21 11:12 | P.PCN ---
Date of Procedure: 09/21/23 Description of Procedure: PREOPERATIVE DIAGNOSIS: Dysphagia. Morbid obesity due to excess calories History of gastric bypass POSTOPERATIVE DIAGNOSIS: Dysphagia. Morbid obesity. Gastrojejunal stricture without chronic ulcer without perforation OPERATION: Esophagogastrojejunoscopy with balloon dilatation from 18 to 20 mm. SURGEON: Cheryl Wu MD ANESTHESIA: MAC. INDICATIONS: The patient is a 52-year-old female who presents with a history of dysphagia including gastric bypass. Benefits and risks of the procedure were described. Informed consent was obtained. DESCRIPTION: The patient was brought into the endoscopy suite and laid in the left lateral decubitus position. After a timeout was confirmed, the procedure was initiated. An Olympus gastroscope was passed along the posterior oropharynx down to the distal esophagus where the squamocolumnar junction was unremarkable. The gastric pouch was entered. A gastrojejunal stricture of 18 mm was found as the adult gastroscope was 9.5 mm in size. A Embark balloon dilator was placed through the scope. Final insufflation up to 20 mm was performed with a total of 2 minutes. The scope was advanced up to 60 cm from the incisors into the Leona limb. The mucosa of the gastrojejunal anastomosis was intact. No chronic gastrojejunal marginal ulcer was encountered. No full-thickness injury was encountered. The GI tract was desufflated. The patient tolerated the procedure well. FINDINGS: Squamocolumnar junction unremarkable at 37 cm. Stricture of approximately 18 mm encountered. No chronic gastrojejunal ulceration encountered. Successful balloon dilatation to 20 mm. Gastric pouch 6 cm RECOMMENDATIONS: Liquid diet. Upper endoscopy as needed.
--- NOTE | 2023-09-21 11:28 | P.PCN ---
Date of Procedure: 09/21/23 Description of Procedure: PREOPERATIVE DIAGNOSIS: Colonoscopy screening. POSTOPERATIVE DIAGNOSIS: Colonoscopy screening. OPERATION: Colonoscopy to the cecum, ileocecal valve and appendiceal orifice. SURGEON: Cheryl Wu MD. ANESTHESIA: MAC. INDICATIONS: The patient is a 52-year-old female who presents for colonoscopy screening. Benefits and risks were described and informed consent was obtained. DESCRIPTION OF PROCEDURE: The patient had undergone Sutab prep. The patient had been brought into the operating room and laid in the left lateral decubitus position. After adequate intravenous sedation, the rectum was examined with 2% lidocaine jelly. No external hemorrhoids were encountered. The rectal tone was within normal limits. No lesions were palpated in the rectal vault. An Olympus colonoscope was advanced until the cecum, ileocecal valve and appendiceal orifice were clearly viewed. The prep was fair. No scattered diverticulosis was encountered. No colonic polyps were found. No evidence of focal colitis was found. Retroflexion of the scope demonstrated grade 1 internal hemorrhoids without active bleeding or inflammation. The colon was desufflated. The patient had tolerated the procedure well. Withdrawal time was over 6 minutes. FINDINGS: Aronchick preparation quality scale 3 (1-5) Internal hemorrhoids, grade 1 No external prolapsed hemorrhoids. No arteriovenous malformations. No adenomatous polyps. No focal colitis. RECOMMENDATIONS: Lower endoscopy in 5 years, 2028 Plan - Discharge Summary Discharge Rx Participant: No New Discharge Prescriptions: Continue Levothyroxine Sodium 88 mcg PO DAILY hydroCHLOROthiazide 50 mg PO DAILY Ergocalciferol [Vitamin D2 (1250 Mcg = 96366 Iu)] 1,250 mcg PO FAJARDO Acetaminophen Tab [Tylenol] 650 mg PO Q6H PRN #30 tab PRN Reason: Mild Pain (Scale 1 To 3) FLUoxetine HCL [PROzac] 20 mg PO DAILY Losartan [Cozaar] 25 mg PO DAILY Discharge Medication List Levothyroxine Sodium 88 mcg PO DAILY 10/26/22 [History] hydroCHLOROthiazide 50 mg PO DAILY 11/04/22 [History] Ergocalciferol [Vitamin D2 (1250 Mcg = 53443 Iu)] 1,250 mcg PO FAJARDO 08/15/23 [History] FLUoxetine HCL [PROzac] 20 mg PO DAILY 08/15/23 [History] Losartan [Cozaar] 25 mg PO DAILY 08/15/23 [History] Acetaminophen Tab [Tylenol] 650 mg PO Q6H PRN #30 tab 08/21/23 [Rx] Follow up Appointment(s)/Referral(s): [facility] [NON-STAFF] - 09/27/23 3:30 pm Patient Instructions/Handouts: Esophageal Dilation (DC) Activity/Diet/Wound Care/Special Instructions: Repeat colonoscopy 10 years, 2033 Discharge Disposition: HOME SELF-CARE
[2023-09-21 11:48] VITALS: BP 114/74; RESP 16
== END 2023-09-21 11:58 | disposition home or self-care (01) ==
LOC: ORWHC2ENDO 09:40
PROVIDERS: ATTEND Surgery Plastic and Reconstructive Surgery
DX: Z12.11 Encounter for screening for malignant neoplasm of colon (principal); K64.0 First degree hemorrhoids; E07.9 Disorder of thyroid, unspecified; E66.01 Morbid (severe) obesity due to excess calories; F41.9 Anxiety disorder, unspecified; I10 Essential (primary) hypertension; K21.9 Gastro-esophageal reflux disease without esophagitis; Z79.890 Hormone replacement therapy; Z79.899 Other long term (current) drug therapy; Z90.49 Acquired absence of other specified parts of digestive tract; Z98.84 Bariatric surgery status
CPT/HCPCS: 45378; 43249; J2001; J2704; C1726

== ENCOUNTER 2024-01-25 16:49 | Observation (INO) | payer OTHER ==
--- NOTE | 2024-01-25 17:28 | ED ---
Chest Pain HPI - General Source: patient, RN notes reviewed Mode of arrival: ambulatory Limitations: no limitations <Meredith Andres - Last Filed: 01/25/24 18:41> - General Source: patient, family, RN notes reviewed Mode of arrival: ambulatory Limitations: no limitations <Ruben Mcfarland - Last Filed: 01/25/24 19:38> - General Chief Complaint: Chest Pain Stated Complaint: Chest Pain Time Seen by Provider: 01/25/24 17:02 - History of Present Illness Initial Comments: Quick [id number] female with history of hypertension presents emergency department chief complaint of chest pain that started yesterday. She states that this is a pressure that has been radiating into her back. Today the pain has been extended to her shoulders, neck, and jaw. Patient is endorsing dyspnea with this pressure. Denies history of hypercholesterolemia, diabetes, [place]. (Meredith Andres) Patient is a 53-year-old female present to the emergency department with concerns with chest discomfort. Onset of symptoms was around 24 hours ago. Symptoms have slowly progressively worsened since that time. Discomfort feels like tightness or pressure. Patient does have associated dyspnea. Discomfort does increase with deep breaths as well. Patient symptoms do worsen with exertion. Patient did have some nausea and felt sweaty earlier. No history of similar symptoms previously. No history of cardiac disease. Patient does have history of hypertension (Ruben Mcfarland) - Related Data Home Medications Medication Instructions Recorded Confirmed Levothyroxine Sodium 88 mcg PO DAILY 10/26/22 09/21/23 hydroCHLOROthiazide 50 mg PO DAILY 11/04/22 09/21/23 Ergocalciferol [Vitamin D2 (1250 1,250 mcg PO FAJARDO 08/15/23 09/21/23 Mcg = 19782 Iu)] FLUoxetine HCL [PROzac] 20 mg PO DAILY 08/15/23 09/21/23 Losartan [Cozaar] 25 mg PO DAILY 08/15/23 09/21/23 Previous Rx's Medication Instructions Recorded Acetaminophen Tab [Tylenol] 650 mg PO Q6H PRN #30 tab 08/21/23 Allergies Allergy/AdvReac Type Severity Reaction Status Date / Time No Known Allergies Allergy Verified 01/25/24 16:53 Review of Systems ROS Other: All systems not noted in ROS Statement are negative. <Meredith Andres - Last Filed: 01/25/24 18:41> ROS Other: All systems not noted in ROS Statement are negative. Constitutional: Denies: fever Eyes: Denies: eye pain ENT: Denies: ear pain Respiratory: Reports: as per HPI, dyspnea Cardiovascular: Reports: as per HPI, chest pain, dyspnea on exertion Endocrine: Denies: fatigue Gastrointestinal: Denies: abdominal pain <BartoloRuben - Last Filed: 01/25/24 19:38> ROS Statement: Those systems with pertinent positive or pertinent negative responses have been documented in the HPI. EKG Findings - EKG Results: EKG: interpreted by ERMD (Inferior Q waves), sinus rhythm, normal axis, normal ST/T <McfarlandRuben - Last Filed: 01/25/24 19:38> Past Medical History Past Medical History: Sleep Apnea/CPAP/BIPAP, Thyroid Disorder Additional Past Medical History / Comment(s): used to use CPAP-not needed since lost >100#, anemia, kidney stones, History of Any Multi-Drug Resistant Organisms: None Reported Past Surgical History: Adenoidectomy, Bariatric Surgery, Cholecystectomy, Tonsillectomy Additional Past Surgical History / Comment(s): rouxen y gastric bypass 2013. , D & C's, Colonoscopy10/2018,. Kidney stone removal Past Anesthesia/Blood Transfusion Reactions: No Reported Reaction Additional Past Anesthesia/Blood Transfusion Reaction / Comment(s): pt has had elevated BP before surgeries. ( anxiety) Past Psychological History: Anxiety, Depression Smoking Status: Never smoker Past Alcohol Use History: Rare Past Drug Use History: None Reported - Past Family History Father Family Medical History: Cancer Brother(s) Family Medical History: Cancer Additional Family Medical History / Comment(s): colorectal Sister(s) Family Medical History: Cancer Additional Family Medical History / Comment(s): uterine,throat <Meredith Andres - Last Filed: 01/25/24 18:41> General Exam Limitations: no limitations <Meredith Andres - Last Filed: 01/25/24 18:41> Limitations: no limitations General appearance: alert Head exam: Present: normocephalic Eye exam: Present: normal appearance Neck exam: Present: normal inspection Respiratory exam: Present: normal lung sounds bilaterally. Absent: chest wall tenderness Cardiovascular Exam: Present: regular rate, normal rhythm, normal heart sounds Expanded Peripheral pulses: 2+: Radial (R), Radial (L), Posterior Tibialis (R), Posterior Tibialis (L) GI/Abdominal exam: Present: soft. Absent: tenderness Extremities exam: Present: pedal edema (+1, patient states normal). Absent: calf tenderness Neurological exam: Present: alert Psychiatric exam: Present: normal affect, normal mood Skin exam: Present: normal color <Ruben Mcfarland - Last Filed: 01/25/24 19:38> - General Exam Comments Initial Comments: Visual Physical Exam Vital signs reviewed General: Well-appearing, nontoxic, no acute distress. Head: Normocephalic, atraumatic Eyes: PERRLA, EOMI ENT: Airway patent Chest: Nonlabored breathing Skin: No visual rash, normal skin tone Neuro: Alert and oriented 3 Musculoskeletal: No gross abnormalities (Meredith Andres) Course Vital Signs 01/25/24 01/25/24 01/25/24 16:52 18:16 19:03 Temperature 97.9 F Pulse Rate 97 88 71 Respiratory 16 20 20 Rate Blood Pressure 142/74 115/81 136/59 O2 Sat by Pulse 100 99 98 Oximetry Chest Pain MDM <Meredith Andres - Last Filed: 01/25/24 18:41> <Ruben Mcfarland - Last Filed: 01/25/24 19:38> - MDM I completed the quick note portion of this chart signed Meredith Andres PA-C (Meredith Andres) Was pt. sent in by a medical professional or institution ([facility] [place], [employer]ILDING [employer]STRUCTION [employer]INEER, urgent care, hospital, or halfway...) When possible be specific @ -No Did you speak to anyone other than the patient for history (EMS, parent, family, police, friend...)? What history was obtained from this source @ -Family is present helps confirm history the patient does not have history of similar symptoms Did you review nursing and triage notes (agree or disagree)? Why? @ -I reviewed and agree with nursing and triage notes Were old charts reviewed (outside hosp., previous admission, EMS record, old EKG, old radiological studies, urgent care reports/EKG's, halfway records)? Report findings @ -No old charts were reviewed Differential Diagnosis (chest pain, altered mental status, abdominal pain women, abdominal pain men, vaginal bleeding, weakness, fever, dyspnea, syncope, headache, dizziness, GI bleed, back pain, seizure, CVA, palpatations, mental health, musculoskeletal)? @ -Differential Chest Pain: Stable Angina, Unstable Angina, STEMI, NSTEMI Aortic Dissection, Pneumothorax, Musculoskeletal, Esophageal Spasm GERD, Cholecystitis, Pancreatitis, Zoster, this is not meant to be an all-inclusive list. EKG interpreted by me (3pts min.). @ -As above X-rays interpreted by me (1pt min.). @ -Chest x-ray shows no acute process CT interpreted by me (1pt min.). @ -None done U/S interpreted by me (1pt. min.). @ -None done What testing was considered but not performed or refused? (CT, X-rays, U/S, labs)? Why? @ -None What meds were considered but not given or refused? Why? @ -None Did you discuss the management of the patient with other professionals (professionals i.e. , PA, BUILDING CONSTRUCTION ENGINEER, lab, RT, psych nurse, licensed social worker, termite control representative, teacher, chief commercial officer, corrections caseworker)? Give summary @ -EMH for lillian who will admit covering Dr. Ceja Was smoking cessation discussed for >3mins.? @ -No Was critical care preformed (if so, how long)? @ -No Were there social determinants of health that impacted care today? How? (Homelessness, low income, unemployed, alcoholism, drug addiction, transportation, low edu. Level, literacy, decrease access to med. care, shelter, rehab)? @ -No Was there de-escalation of care discussed even if they declined (Discuss DNR or withdrawal of care, Hospice)? DNR status @ -No What co-morbidities impacted this encounter? (DM, HTN, Smoking, COPD, CAD, Cancer, CVA, ARF, Chemo, Hep., AIDS, mental health diagnosis, sleep apnea, morbid obesity)? @ -Hypertension Was patient admitted / discharged? Hospital course, mention meds given and route, prescriptions, significant lab abnormalities, going to OR and other pertinent info. @ -Patient presents with chest discomfort. Mild improvement with nitroglycerin. Patient will be admitted with cardiac consult. Admission orders written. Patient and family updated. Undiagnosed new problem with uncertain prognosis? @ -No Drug Therapy requiring intensive monitoring for toxicity (Heparin, Nitro, Insulin, Cardizem)? @ -No Were any procedures done? @ -No Diagnosis/symptom? @ -Chest pain Acute, or Chronic, or Acute on Chronic? @ -Acute Uncomplicated (without systemic symptoms) or Complicated (systemic symptoms)? @ -Default Side effects of treatment? @ -No Exacerbation, Progression, or Severe Exacerbation? @ -No Poses a threat to life or bodily function? How? (Chest pain, [place], [place], pneumonia, PE, COPD, DKA, ARF, appy, cholecystitis, CVA, Diverticulitis, Homicidal, Suicidal, threat to staff... and all critical care pts) @ -No (Ruben Mcfarland) Disposition <Meredith Andres - Last Filed: 01/25/24 18:41> Is patient prescribed a controlled substance at d/c from ED?: No Time of Disposition: 19:27 <Ruben Mcfarland - Last Filed: 01/25/24 19:38> Clinical Impression: Chest pain Disposition: ADMITTED IP TO THIS HOSP
--- NOTE | 2024-01-25 17:29 | XR ---
EXAMINATION TYPE: XR chest 2V DATE OF EXAM: 01/25/2024 5:21 PM CLINICAL INDICATION:Female, 53 years old with history of Chest Pain; [facility] COMPARISON: Chest radiographs from TECHNIQUE: XR chest 2V Frontal and lateral views of the chest. FINDINGS: Lungs/Pleura: There is no evidence of pleural effusion, focal consolidation, or pneumothorax. Pulmonary vascularity: Unremarkable. Heart/mediastinum: Cardiomediastinal silhouette is unremarkable. Musculoskeletal: No acute osseous pathology. Other findings: None Lines/Tubes: IMPRESSION: No acute cardiopulmonary disease/process.
[2024-01-25 17:44] LABS: Basophils # (A) 0.1 k/uL (0-0.2); Basophils % (A) 1 %; Eosinophils # (A) 0.3 k/uL (0-0.7); Eosinophils % (A) 2 %; HCT 43.3 % (34.0-46.0); HGB 14.4 gm/dL (11.4-16.0); Lymphocytes # (A) 3.2 k/uL (1.0-4.8); Lymphocytes % (A) 23 %; MCH 28.7 pg (25.0-35.0); MCHC 33.4 g/dL (31.0-37.0); MCV 86.1 fL (80.0-100.0); Mean Platelet Volume 7.8; Monocytes # (A) 0.6 k/uL (0-1.0); Monocytes % (A) 4 %; Neutrophils # (A) 9.6 k/uL (1.3-7.7); Neutrophils % (A) 69 %; Platelet Count 324 k/uL (150-450); RBC 5.03 m/uL (3.80-5.40); RDW 13.5 % (11.5-15.5); WBC 13.9 k/uL (3.8-10.6)
[2024-01-25 17:54] LABS: INR 0.9 (<1.2); Partial Thromboplastin Time 25.8 sec (22.0-30.0); Prothrombin Time 10.5 sec (10.0-12.5)
[2024-01-25 17:58] LABS: ALT 23 U/L (4-34); AST 27 U/L (14-36); African American GFR (CKD) >90 (>60 ml/min/1.73 sqM); Albumin 4.1 g/dL (3.5-5.0); Alkaline Phosphatase 83 U/L (38-126); Anion Gap 7 mmol/L; Blood Urea Nitrogen 19 mg/dL (7-17); Calcium 9.8 mg/dL (8.4-10.2); Carbon Dioxide 32 mmol/L (22-30); Chloride 100 mmol/L (98-107); Glucose 87 mg/dL (74-99); Magnesium 1.9 mg/dL (1.6-2.3); Non-African American GFR(CKD) >90 (>60 ml/min/1.73 sqM); Potassium 3.2 mmol/L (3.5-5.1); Sodium 139 mmol/L (137-145); Total Bilirubin 0.3 mg/dL (0.2-1.3); Total Protein 6.7 g/dL (6.3-8.2)
[2024-01-25] MEDS: ASPIRIN 81 MG PO STA (18:45)
[2024-01-25] MEDS: NITROGLYCERIN SL TABS 0.4 MG TAB SUBLINGUAL STA ×3 (18:46→22:12)
[2024-01-26] MEDS: NITROGLYCERIN OINT 1 INCH/GM PACKET TOPICAL SCH (00:56)
[2024-01-26] MEDS: NITROGLYCERIN SL TABS 0.4 MG TAB SUBLINGUAL PRN (07:43)
[2024-01-26] MEDS: ASPIRIN 81 MG PO SCH (08:29)
[2024-01-26] MEDS: LEVOTHYROXINE 88 MCG TAB PO SCH (08:29)
[2024-01-26] MEDS: LOSARTAN 25 MG TAB PO SCH (08:29)
[2024-01-26] MEDS: FLUoxetine HCL 20 MG CAP PO SCH (08:29)
[2024-01-26] MEDS ORDERED: ASPIRIN 325 MG TAB PO SCH (09:00)
[2024-01-26] MEDS: COLCHICINE 0.6 MG EACH PO STA (09:12)
[2024-01-26] MEDS: COLCHICINE 0.6 MG EACH PO SCH (09:14)
[2024-01-26 10:49] LABS: Chol/HDL Ratio 3.03 Ratio; LDL Cholesterol,Calculated 63.6 mg/dL (0.0-131.0)
--- NOTE | 2024-01-26 12:06 | P.CRDCN ---
History of Present Illness History of present illness: This is Dr. Fulton dictating a consult on this patient The patient was interviewed and examined IMPRESSION / ASSESSMENT: Pleuritic chest discomfort, serial EKGs consistent with possible pericarditis no evidence for myocarditis normal cardiac enzymes Hypertension PLAN: Colchicine 1.2 mg today stat followed by 0.6 mg p.o. daily thereafter If this does not relieve her pain then indomethacin 25 mg twice daily should be added in addition to colchicine Adequate hydration orally while on these medications and perhaps an H2 rochelle or proton pump inhibitor AVOID prescribe steroids for rapid relief of pain. Steroids increase the risk of recurrent/relapsing pericarditis This was explained to the patient CRP, ESR, lipid panel, hemoglobin A1c, TSH 2D echo study to assess pericardium viral titres: Coxsackie and parvovirus Patient will be discharged home within the next 24 to 48 hours and follow-up with Dr. Fulton as an outpatient HPI Patient presented with chest discomfort that started 1 to 2 days back and got worse yesterday. The pain is pleuritic in nature and typically becomes worse when she lays flat although it is there all the time Treatment in the ER resulted in only mild improvement in the intensity of the pain. She is still experiencing pain The first 12 EKG showed sinus rhythm without any definite ST segment abnormalities The follow-up EKG shows more diffuse [address] segment elevation and a subtle MA depression The patient denies any recent fever chills upper respiratory infection She denies any cough expectoration or symptoms suggestive of bronchitis or pneumonitis She has a history of hypertension and is on antihypertensive therapy blood pressure is well-controlled ROS: No fever chills or rigors, no cough, phlegm or expectoration, no nausea, vomiting or diarrhea, no hematuria, dysuria, no musculoskeletal complaints, no strokes or seizures, no skin lesions. EXAMINATION: Normal blood pressure No chest wall tenderness Clear lungs Normal heart sounds no rub REVIEW OF LABS, ECG & MEDICAL DATA Normal cardiac enzymes Elevated white count with a leftward shift Normal D-dimer Mild hypokalemia, patient on thiazide diuretic Past Medical History Past Medical History: Sleep Apnea/CPAP/BIPAP, Thyroid Disorder Additional Past Medical History / Comment(s): used to use CPAP-not needed since lost >100#, anemia, kidney stones, History of Any Multi-Drug Resistant Organisms: None Reported Past Surgical History: Adenoidectomy, Bariatric Surgery, Cholecystectomy, Tonsillectomy Additional Past Surgical History / Comment(s): rouxen y gastric bypass 2014. , D & C's, Colonoscopy10/2018,. Kidney stone removal Past Anesthesia/Blood Transfusion Reactions: No Reported Reaction Additional Past Anesthesia/Blood Transfusion Reaction / Comment(s): pt has had elevated BP before surgeries. ( anxiety) Past Psychological History: Anxiety, Depression Smoking Status: Never smoker Past Alcohol Use History: Rare Past Drug Use History: None Reported - Past Family History Father Family Medical History: Cancer Brother(s) Family Medical History: Cancer Additional Family Medical History / Comment(s): colorectal Sister(s) Family Medical History: Cancer Additional Family Medical History / Comment(s): uterine,throat Medications and Allergies Home Medications Medication Instructions Recorded Confirmed Type Levothyroxine Sodium 88 mcg PO DAILY 10/26/22 01/25/24 History hydroCHLOROthiazide 50 mg PO DAILY 11/04/22 01/25/24 History Ergocalciferol [Vitamin D2 (1250 1,250 mcg PO FAJARDO 08/15/23 01/25/24 History Mcg = 45900 Iu)] FLUoxetine HCL [PROzac] 20 mg PO DAILY 08/15/23 01/25/24 History Losartan [Cozaar] 25 mg PO DAILY 08/15/23 01/25/24 History Allergies Allergy/AdvReac Type Severity Reaction Status Date / Time No Known Allergies Allergy Verified 01/25/24 19:42 Physical Exam Vitals: Vital Signs Temp Pulse Resp BP Pulse Ox 01/26/24 06:55 84 136/72 01/26/24 06:18 98 F 75 18 98/61 96 01/26/24 02:25 84 18 138/83 98 01/26/24 00:55 75 123/86 01/26/24 00:19 97.8 F 75 18 106/68 97 01/25/24 19:38 77 18 119/75 95 01/25/24 19:03 71 20 136/59 98 01/25/24 18:16 88 20 115/81 99 01/25/24 16:52 97.9 F 97 16 142/74 100 Intake and Output 01/25/24 01/26/24 01/26/24 22:59 06:59 14:59 Other: Weight 120.202 kg Results 01/25/24 16:55 01/25/24 16:55 Cardiac Enzymes 01/25/24 01/25/24 01/25/24 Range/Units 16:55 16:55 20:27 AST 27 (14-36) U/L Troponin I <0.012 <0.012 (0.000-0.034) ng/mL 01/26/24 Range/Units 00:51 AST (14-36) U/L Troponin I <0.012 (0.000-0.034) ng/mL Coagulation 01/25/24 Range/Units 16:55 PT 10.5 (10.0-12.5) sec APTT 25.8 (22.0-30.0) sec CBC 01/25/24 Range/Units 16:55 WBC 13.9 H (3.8-10.6) k/uL RBC 5.03 (3.80-5.40) m/uL Hgb 14.4 (11.4-16.0) gm/dL Hct 43.3 (34.0-46.0) % Plt Count 324 (150-450) k/uL Comprehensive Metabolic Panel 01/25/24 Range/Units 16:55 Sodium 139 (137-145) mmol/L Potassium 3.2 L (3.5-5.1) mmol/L Chloride 100 (98-107) mmol/L Carbon Dioxide 32 H (22-30) mmol/L BUN 19 H (7-17) mg/dL Creatinine 0.64 (0.52-1.04) mg/dL Glucose 87 (74-99) mg/dL Calcium 9.8 (8.4-10.2) mg/dL AST 27 (14-36) U/L ALT 23 (4-34) U/L Alkaline Phosphatase 83 (38-126) U/L Total Protein 6.7 (6.3-8.2) g/dL Albumin 4.1 (3.5-5.0) g/dL Current Medications Generic Name Dose Route Start Last Admin Trade Name Freq PRN Reason Stop Dose Admin Aspirin 81 mg 01/26/24 09:00 Aspirin 81 Mg PO DAILY TAO Ergocalciferol 1,250 mcg 01/28/24 20:34 Ergocalciferol 1,250 Mcg (50,000 Iu) Capsule PO FAJARDO [facility] Fluoxetine HCl 20 mg 01/26/24 09:00 Fluoxetine Hcl 20 Mg Cap PO DAILY TAO Hydrochlorothiazide 50 mg 01/26/24 09:00 Hydrochlorothiazide 50 Mg Tab PO DAILY [facility] Levothyroxine Sodium 88 mcg 01/26/24 09:00 Levothyroxine 88 Mcg Tab PO DAILY TAO Losartan Potassium 25 mg 01/26/24 09:00 Losartan 25 Mg Tab PO DAILY TAO Nitroglycerin 0.4 mg 01/25/24 19:27 01/26/24 07:43 Nitroglycerin Sl Tabs 0.4 Mg Tab SUBLINGUAL 0.4 mg Q5M PRN Administration Chest Pain Intake and Output 01/25/24 01/26/24 01/26/24 22:59 06:59 14:59 Other: Weight 120.202 kg 01/25/24 16:55 01/25/24 16:55
--- NOTE | 2024-01-26 12:36 | P.HPIM ---
History of Present Illness Is a pleasant 53-year-old female came in with complaints of pleuritic chest pain and was diagnosed with pericarditis. Patient does not have any significant EKG changes Except for a follow-up EKG showing [address] elevations and subtle CA depressions diffusely. Patient denies any fever chills upper respiratory tract symptoms patient denies any recent flulike symptoms. Her pain is better after colchicine 1.2 mg but still having pain. Ordering indomethacin 25 mg twice a day along with GI prophylaxis. REVIEW OF SYSTEMS: All other systems are negative except those mentioned in the HPI PHYSICAL EXAMINATION: GENERAL: The patient is alert and oriented x3, not in any acute distress. Well developed, well nourished. HEENT: Pupils are round and equally reacting to light. EOMI. No scleral icterus. No conjunctival pallor. Normocephalic, atraumatic. No pharyngeal erythema. No thyromegaly. CARDIOVASCULAR: S1 and S2 present. No murmurs, rubs, or gallops. PULMONARY: Chest is clear to auscultation, no wheezing or crackles. ABDOMEN: Soft, nontender, nondistended, normoactive bowel sounds. No palpable organomegaly. MUSCULOSKELETAL: No joint swelling or deformity. EXTREMITIES: No cyanosis, clubbing, or pedal edema. NEUROLOGICAL: Gross neurological examination did not reveal any focal deficits. SKIN: No rashes. Assessment and plan -Pleuropericarditis: Colchicine will be continued because of her continued pain we will order nonsteroidal anti-inflammatory medications along with GI prophylaxis -Hypokalemia potassium replaced -Hypertension patient is failure controlled resume her home medications -Hypothyroidism -Sleep apnea DVT prophylaxis: Early ambulation Past Medical History Past Medical History: Sleep Apnea/CPAP/BIPAP, Thyroid Disorder Additional Past Medical History / Comment(s): used to use CPAP-not needed since lost >100#, anemia, kidney stones, History of Any Multi-Drug Resistant Organisms: None Reported Past Surgical History: Adenoidectomy, Bariatric Surgery, Cholecystectomy, Tonsillectomy Additional Past Surgical History / Comment(s): rouxen y gastric bypass 2013. , D & C's, Colonoscopy10/2018,. Kidney stone removal Past Anesthesia/Blood Transfusion Reactions: No Reported Reaction Additional Past Anesthesia/Blood Transfusion Reaction / Comment(s): pt has had elevated BP before surgeries. ( anxiety) Past Psychological History: Anxiety, Depression Smoking Status: Never smoker Past Alcohol Use History: Rare Past Drug Use History: None Reported - Past Family History Father Family Medical History: Cancer Brother(s) Family Medical History: Cancer Additional Family Medical History / Comment(s): colorectal Sister(s) Family Medical History: Cancer Additional Family Medical History / Comment(s): uterine,throat Medications and Allergies Home Medications Medication Instructions Recorded Confirmed Type Levothyroxine Sodium 88 mcg PO DAILY 10/26/22 01/25/24 History hydroCHLOROthiazide 50 mg PO DAILY 11/04/22 01/25/24 History Ergocalciferol [Vitamin D2 (1250 1,250 mcg PO FAJARDO 08/15/23 01/25/24 History Mcg = 63539 Iu)] FLUoxetine HCL [PROzac] 20 mg PO DAILY 08/15/23 01/25/24 History Losartan [Cozaar] 25 mg PO DAILY 08/15/23 01/25/24 History Colchicine 0.6 mg PO DAILY #90 tablet 01/26/24 Rx Allergies Allergy/AdvReac Type Severity Reaction Status Date / Time No Known Allergies Allergy Verified 01/25/24 19:42 Physical Exam Vitals: Vital Signs Temp Pulse Resp BP Pulse Ox 01/26/24 11:00 75 18 140/74 96 01/26/24 10:00 72 16 136/68 98 01/26/24 06:55 84 136/72 01/26/24 06:18 98 F 75 18 98/61 96 01/26/24 02:25 84 18 138/83 98 01/26/24 00:55 75 123/86 01/26/24 00:19 97.8 F 75 18 106/68 97 01/25/24 19:38 77 18 119/75 95 01/25/24 19:03 71 20 136/59 98 01/25/24 18:16 88 20 115/81 99 01/25/24 16:52 97.9 F 97 16 142/74 100 Intake and Output 01/25/24 01/26/24 01/26/24 22:59 06:59 14:59 Other: Weight 120.202 kg Results CBC & Chem 7: 01/25/24 16:55 01/25/24 16:55 Labs: Abnormal Lab Results - Last 24 Hours (Table) 01/25/24 01/25/24 01/26/24 Range/Units 16:55 16:55 09:16 WBC 13.9 H (3.8-10.6) k/uL Neutrophils # 9.6 H (1.3-7.7) k/uL Potassium 3.2 L (3.5-5.1) mmol/L Carbon Dioxide 32 H (22-30) mmol/L BUN 19 H (7-17) mg/dL C-Reactive Protein 2.9 H (<1.0) mg/dL
[2024-01-26] MEDS: INDOMETHACIN 25 MG CAP PO SCH (13:26)
[2024-01-26] MEDS: POTASSIUM CHLORIDE ER 20 MEQ TAB.ER PO STA (13:26)
[2024-01-26] MEDS: FAMOTIDINE 20 MG TAB PO SCH (13:27)
--- NOTE | 2024-01-26 19:08 | CA ---
Transthoracic Echo Report Name: Sophy Padilla Age: 53 Gender: F : 1970 Exam Date: 01/26/2024 12:54 Exam Location: [facility] Ht (in): 62 Wt (lb): 265 Ordering Physician: Eric Lewis MD ([id number]) Attending/Referring Phys: Center Machine Operator Judy Redmond RDCS Procedure CPT: Indications: chf Cardiac Hx: Technical Quality: Fair Contrast 1: Total Dose (mL): Contrast 2: Total Dose (mL): MEASUREMENTS (Male / Female) Normal Values 2D ECHO LV Diastolic Diameter PLAX 4.0 cm 4.2 - 5.9 / 3.9 - 5.3 cm LV Systolic Diameter PLAX 3.0 cm IVS Diastolic Thickness 1.3 cm 0.6 - 1.0 / 0.6 - 0.9 cm LVPW Diastolic Thickness 1.1 cm 0.6 - 1.0 / 0.6 - 0.9 cm LV Relative Wall Thickness 0.6 RV Internal Dim ED PLAX 2.1 cm LA Systolic Diameter LX 4.7 cm 3.0 - 4.0 / 2.7 - 3.8 cm LV Diastolic Volume MOD BP 41.8 cm??? 67 - 155 / 56 - 104 cm??? LV Systolic Volume MOD BP 20.5 cm??? 22 - 58 / 19 - 49 cm??? LV Ejection Fraction MOD BP 51.1 % >= 55 % LV Cardiac Index MOD BP 649.7 cm???/min???m??? LV Diastolic Volume MOD 4C 33.0 cm??? LV Systolic Volume MOD 4C 15.5 cm??? LV Ejection Fraction MOD 4C 53.0 % LV Cardiac Index MOD 4C 532.2 cm???/min???m??? LV Diastolic Length 4C 6.5 cm LV Systolic Length 4C 5.2 cm LV Diastolic Volume MOD 2C 51.9 cm??? LV Systolic Volume MOD 2C 25.3 cm??? LV Ejection Fraction MOD 2C 51.3 % LV Cardiac Index MOD 2C 807.8 cm???/min???m??? LV Diastolic Length 2C 6.3 cm LV Systolic Length 2C 5.6 cm M-MODE Aortic Root Diameter MM 2.7 cm LA Systolic Diameter MM 4.4 cm LA Ao Ratio MM 1.6 AV Cusp Separation MM 1.7 cm DOPPLER AV Peak Velocity 158.2 cm/s AV Peak Gradient 10.0 mmHg Mitral E Point Velocity 95.3 cm/s Mitral A Point Velocity 99.3 cm/s Mitral E to A Ratio 1.0 MV Deceleration Time 291.0 ms MV E' Velocity 10.3 cm/s Mitral E to MV E' Ratio 9.3 TR Peak Velocity 181.7 cm/s TR Peak Gradient 13.2 mmHg FINDINGS Left Ventricle Left ventricular ejection fraction is estimated at 55-60 %. Mildly increased septal wall thickness. Mildly increased posterior wall thickness. No obvious regional wall motion abnormalities. Left ventricular cavity size normal. Right Ventricle Normal right ventricular size and function. Right ventricular systolic pressure within normal limits. Right Atrium Mild right atrial dilatation. Left Atrium Moderately increased left atrial diameter. Mild left atrial dilatation. Mitral Valve Structurally normal mitral valve. Trace mitral regurgitation. No mitral stenosis. Aortic Valve Trileaflet aortic valve. No aortic valve stenosis or regurgitation. Tricuspid Valve Structurally normal tricuspid valve. Trace tricuspid regurgitation. Pulmonic Valve Structurally normal pulmonic valve. Trace pulmonic regurgitation. No pulmonic stenosis. Pericardium Minimal pericardial effusion (normal variant). Echo free space anterior to the right ventricle likely represents a fat pad. Aorta Normal size aortic root and proximal ascending aorta. CONCLUSIONS Diagnosis Coronary artery disease coronary artery bypass grafting coronary stenting angina Preserved LV size and systolic function Left atrial enlargement Previewed by: Dr. Will Fulton MD (Electronically Signed) Final Date: 26 January 2024 19:07
[2024-01-27 08:13] VITALS: RESP 16
[2024-01-27 10:50] VITALS: BP 149/80; PULSE 97; TEMP 98
[2024-01-27 13:24] LABS: African American GFR (CKD) >90 (>60 ml/min/1.73 sqM); Anion Gap 7 mmol/L; Blood Urea Nitrogen 13 mg/dL (7-17); Calcium 9.1 mg/dL (8.4-10.2); Carbon Dioxide 29 mmol/L (22-30); Chloride 101 mmol/L (98-107); Glucose 147 mg/dL (74-99); Non-African American GFR(CKD) >90 (>60 ml/min/1.73 sqM); Potassium 3.3 mmol/L (3.5-5.1); Sodium 137 mmol/L (137-145)
[2024-01-27] MEDS: POTASSIUM CHLORIDE ER 20 MEQ TAB.ER PO STA (13:47)
[2024-01-28] MEDS ORDERED: ERGOCALCIFEROL 1,250 MCG (50,000 IU) CAPSULE PO SCH (20:34)
--- NOTE | 2024-02-19 23:32 | P.DS ---
Providers Date of admission: 01/25/24 19:21 Attending physician: Priscilla Traore Consults: 01/25/24 19:27 Consult Physician Urgent Consulting Provider: Eric Lewis Consult Reason/Comments: cp Do you want consulting provider notified?: Yes Primary care physician: Gio Cox Hospital Course: Final Diagnosis -Pleuropericarditis: Colchicine will be continued because of her continued pain we will order nonsteroidal anti-inflammatory including -Hypokalemia potassium replaced -Hypertension patient is failure controlled resume her home medications -Hypothyroidism -Sleep apnea Discharge Disposition Patient is stable for discharge home. Continue same home medications additionally colchicine and idocin. Patient is on GI prophylaxis with pepcid and omeprazole. Will follow up with cardiology in the office in 2 weeks as well as PCP Dr Cox in 1 to 2 days. Hospital Course This is a pleasant 53-year-old female came in with complaints of pleuritic chest pain and was diagnosed with pericarditis. Patient does not have any significant EKG changes Except for a follow-up EKG showing [address] elevations and subtle CO depressions diffusely. Patient denies any fever chills upper respiratory tract symptoms patient denies any recent flulike symptoms. Her pain is better after colchicine 1.2 mg but still having pain. Ordering indomethacin 25 mg twice a day along with GI prophylaxis. Cardiology following. Patient had echocardiogram done reveals preserved LV size and systolic function. Patients chest discomfort has improved on combination of colchicine and indomethicin. Cleared for discharg e. Please see medication reconciliation for a list of current medications. Thank you for allowing us to participate in the care of this patient. The impression and plan of care has been dictated by Gita Mishra, Nurse Practitioner as directed. Dr. Erick MD I have performed a history and physical examination and medical decision making of this patient, discussed the same with the dictator, and agree with the dictators assessment and plan as written, documented as a scribe. Based on total visit time, I have performed more than 50% of this visit. Patient Condition at Discharge: Stable Plan - Discharge Summary Discharge Rx Participant: No New Discharge Prescriptions: New Famotidine [Pepcid] 20 mg PO BID #60 tab Omeprazole [PriLOSEC] 20 mg PO DAILY #30 cap Aspirin 81 mg PO DAILY #30 tab Indomethacin [Indocin] 25 mg PO BID #20 cap Colchicine 0.6 mg PO DAILY #90 tablet Continue Levothyroxine Sodium 88 mcg PO DAILY hydroCHLOROthiazide 50 mg PO DAILY Ergocalciferol [Vitamin D2 (1250 Mcg = 63920 Iu)] 1,250 mcg PO FAJARDO FLUoxetine HCL [PROzac] 20 mg PO DAILY Losartan [Cozaar] 25 mg PO DAILY Discharge Medication List Levothyroxine Sodium 88 mcg PO DAILY 10/26/22 [History] hydroCHLOROthiazide 50 mg PO DAILY 11/04/22 [History] Ergocalciferol [Vitamin D2 (1250 Mcg = 05599 Iu)] 1,250 mcg PO FAJARDO 08/15/23 [History] FLUoxetine HCL [PROzac] 20 mg PO DAILY 08/15/23 [History] Losartan [Cozaar] 25 mg PO DAILY 08/15/23 [History] Aspirin 81 mg PO DAILY #30 tab 01/27/24 [Rx] Colchicine 0.6 mg PO DAILY #90 tablet 01/27/24 [Rx] Famotidine [Pepcid] 20 mg PO BID #60 tab 01/27/24 [Rx] Indomethacin [Indocin] 25 mg PO BID #20 cap 01/27/24 [Rx] Omeprazole [PriLOSEC] 20 mg PO DAILY #30 cap 01/27/24 [Rx] Follow up Appointment(s)/Referral(s): Will Fulton MD [STAFF PHYSICIAN] - 2 Weeks Gio Cox DO [Primary Care Provider] - 1-2 days Ambulatory/Diagnostic Orders: Basic Metabolic Panel [LAB.AMB] Time Frame: 4 Days, Location: None Selected Patient Instructions/Handouts: Chest Pain (DC) Activity/Diet/Wound Care/Special Instructions: follow up as advised, sooner for worsening symptoms, problems or concerns. Discharge Disposition: HOME SELF-CARE
[2024-02-21 14:59] LABS: Parvovirus B-19 IgG Antibodies 4.81 INDEX (<=0.90); Parvovirus B-19 IgM Antibodies 0.14 INDEX (<=0.90)
== END 2024-01-27 14:20 | disposition home or self-care (01) ==
LOC: EC 16:49 → 6NMEDSUR 19:21
PROVIDERS: ADMIT Internal Medicine; ATTEND Internal Medicine
DX: I31.9 Disease of pericardium, unspecified (principal); E87.6 Hypokalemia; I10 Essential (primary) hypertension; E03.9 Hypothyroidism, unspecified; G47.30 Sleep apnea, unspecified; M54.9 Dorsalgia, unspecified; R68.84 Jaw pain; R61 Generalized hyperhidrosis; Z79.890 Hormone replacement therapy; Z79.899 Other long term (current) drug therapy
CPT/HCPCS: 99285; 36415; 93005 ×2; 93306; 86747 ×2; 85379; 83880; 80061; 80053; 80048; 85652; 83735; 84484 ×2; 85025; 86658; 85610; 85730; 86140; 71046; G0378 ×3